=== PATIENT | male | born 1965 | race Caucasian/White ===

== ENCOUNTER → 2017-03-23 15:23 | Outpatient (CLI) | payer MEDICAID, SELFPAY ==
[2017-03-23 19:29] LABS: Amphetamine/Metha Screen,Urine Negative ng/mL (<1000); Barbiturates Screen,Urine Negative ng/mL (<200); Benzodiazepines Screen,Urine Positive ng/mL (200); Cannabinoid Screen,Urine Negative ng/mL (<50); Cocaine Screen,Urine Negative ng/g (<300); Methadone Screen,Urine Negative ng/mL (<300); Opiate Screen,Urine Positive ng/mL (<300); Phencyclidine Screen,Urine Negative ng/mL (<25)
== END ==
PROVIDERS: Visit Provider Emergency Medicine
DX: Z79.899 Other long term (current) drug therapy (principal)
CPT/HCPCS: 80305

== ENCOUNTER → 2017-04-23 14:45 | Outpatient (REF) | payer MEDICAID, SELFPAY ==
[2017-04-23 19:54] LABS: Amphetamine/Metha Screen,Urine Negative ng/mL (<1000); Barbiturates Screen,Urine Negative ng/mL (<200); Benzodiazepines Screen,Urine Positive ng/mL (200); Cannabinoid Screen,Urine Negative ng/mL (<50); Cocaine Screen,Urine Negative ng/g (<300); Methadone Screen,Urine Negative ng/mL (<300); Opiate Screen,Urine Positive ng/mL (<300); Phencyclidine Screen,Urine Negative ng/mL (<25)
== END ==
LOC: LAB 14:45
PROVIDERS: Visit Provider Emergency Medicine
DX: Z79.899 Other long term (current) drug therapy (principal)
CPT/HCPCS: 80305

== ENCOUNTER → 2017-10-02 09:33 | Outpatient (REF) | payer MEDICAID, SELFPAY ==
[2017-10-02 16:58] LABS: Amphetamine/Metha Screen,Urine Negative ng/mL (<1000); Barbiturates Screen,Urine Negative ng/mL (<200); Benzodiazepines Screen,Urine Positive ng/mL (<200); Cannabinoid Screen,Urine Negative ng/mL (<50); Cocaine Screen,Urine Negative ng/mL (<300); Methadone Screen,Urine Negative ng/mL (<300); Opiate Screen,Urine Negative ng/mL (<300); Phencyclidine Screen,Urine Negative ng/mL (<25)
== END ==
LOC: LAB 09:33
PROVIDERS: Visit Provider Nurse Practitioner Family
DX: Z79.899 Other long term (current) drug therapy (principal)
CPT/HCPCS: 80305

== ENCOUNTER → 2017-12-31 13:30 | Outpatient (CLI) | payer MEDICAID, SELFPAY ==
[2017-12-31 13:44] LABS: Basophils % 0.4 % (0.1-2.0); Eosinophils # 0.1 K/mm3 (0.0-0.4); Eosinophils % 2.1 % (0.1-12.0); Hematocrit 49.6 % (42.0-52.0); Hemoglobin 16.4 g/dL (14.1-18.0); Lymphocytes # 1.9 K/mm3 (0.7-4.5); Lymphocytes % 34.2 % (10-50); Mean Corpuscular Volume 100.1 fl (80-94); Mean Platelet Volume 8.3 fl (7.4-10.4); Monocytes # 0.6 K/mm3 (0.1-1.0); Neutrophils % 53.3 % (37.0-80.0); Platelet Count 168 K/mm3 (142-424); Red Blood Count 4.96 M/mm3 (4.60-6.20); Red Cell Distribution Width 13.1 % (11.5-17.5); White Blood Count 5.6 K/mm3 (4.8-10.8)
[2017-12-31 13:58] LABS: Hemoglobin A1C 5.5 % (0.0-7.0)
[2017-12-31 14:40] LABS: Alanine Aminotransferase 48 U/L (12-78); Albumin Level 3.7 gm/dL (3.4-5.0); Albumin/Globulin Ratio 0.8 (1.1-1.8); Alkaline Phosphatase 77 U/L (46-116); Anion Gap 15.3 mEq/L (5-15); Aspartate Amino Transferase 28 U/L (15-37); Bilirubin,Total 0.3 mg/dL (0.2-1.0); Blood Urea Nitrogen 10 mg/dL (7-18); Calcium 9.1 mg/dL (8.5-10.1); Carbon Dioxide 26 mmol/L (21.0-32.0); Chloride 104 mmol/L (98-107); Chol/HDL Ratio 3.8 (1-3.5); Cholesterol 195 mg/dL (140-200); Creatinine,Serum 0.77 mg/dL (0.70-1.30); Estimated Glomerular Filt Rate 106 ml/min (>60); Free T4 (Free Thyroxine) 0.96 ng/dl (0.76-1.46); GFR (African American) 128 ML/MIN (>60); Globulin 4.8 gm/dl (1.3-3.2); HDL Cholesterol 52 mg/dL (27-67); LDL Cholesterol 130 mg/dL (0-130); Potassium 4.3 mmoL/L (3.5-5.1); Sodium 141 mmol/L (136-145); Thyroid Stimulating Hormone 1.99 uIU/ml (0.358-3.740); Total Protein,Serum 8.5 gm/dL (6.4-8.2); Triglycerides 66 mg/dL (30-200); VLDL Cholesterol 13 mg/dL (0-40)
[2017-12-31 14:45] LABS: Glucose 93 mg/dL (74-106)
[2017-12-31 14:48] LABS: Amphetamine/Metha Screen,Urine Negative ng/mL (<1000); Barbiturates Screen,Urine Negative ng/mL (<200); Benzodiazepines Screen,Urine Negative ng/mL (<200); Cannabinoid Screen,Urine Negative ng/mL (<50); Cocaine Screen,Urine Negative ng/mL (<300); Methadone Screen,Urine Negative ng/mL (<300); Opiate Screen,Urine Negative ng/mL (<300); Phencyclidine Screen,Urine Negative ng/mL (<25)
[2018-01-02 16:00] LABS: Prostate Specific Ag 0.3 ng/mL (0.0-4.0)
[2018-01-02 16:01] LABS: PSA, Free 0.08 ng/mL
== END ==
PROVIDERS: Visit Provider Emergency Medicine
DX: I10 Essential (primary) hypertension (principal); Z79.899 Other long term (current) drug therapy
CPT/HCPCS: 80053; 80061; 80305; 83036; 84153; 84154; 84439; 84443; 85025

== ENCOUNTER → 2018-01-22 07:25 | Outpatient (CLI) | payer MEDICAID, SELFPAY ==
--- NOTE | 2018-01-22 07:28 | NM_ITS ---
CARDIOLITE SPECT MYOCARDIAL PERFUSION SCAN, REST AND STRESS: EXERCISE STRESS [facility] REVIEW QGS EF AND WALL MOTION EVALUATION: QPS - PERFUSION EVALUATION HISTORY: Chest pain, HTN, Tobacco use DOSE: 9.91 mCi technetium 99m mibi intravenously at rest followed by 30.4 mCi technetium 99m mibi following the intravenous ministration of 0.4 mg of Lexiscan. Resting blood pressure is 176/88. Stress blood pressure 157/81. FINDINGS: Ejection fraction is calculated to be 60%. Stress images reveal decreased activity in the inferior apical wall with mildly reduced activity in a portion of the lateral wall. 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 The inferior wall and apex are significantly hypokinetic. Ejection fraction normal. This is a high risk abnormal stress test
--- NOTE | 2018-01-22 08:18 | HMH.ITSHM ---
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 []LORAZOPAM BUPROPION LISINOPRIL HYDROCODONE NEURONTIN FLEXERIL ASA
== END ==
PROVIDERS: PCP Emergency Medicine; Visit Provider Internal Medicine Cardiovascular Disease
DX: R07.9 Chest pain, unspecified (principal); I10 Essential (primary) hypertension; E66.3 Overweight; F17.200 Nicotine dependence, unspecified, uncomplicated; F41.9 Anxiety disorder, unspecified; G47.9 Sleep disorder, unspecified; G89.29 Other chronic pain; R06.83 Snoring; R40.0 Somnolence
CPT/HCPCS: 78452; 93017; 93306; A9502; J2785

== ENCOUNTER → 2018-04-01 14:19 | Outpatient (CLI) | payer MEDICAID, SELFPAY ==
[2018-04-01 15:28] LABS: Amphetamine/Metha Screen,Urine Negative ng/mL (<1000); Barbiturates Screen,Urine Negative ng/mL (<200); Benzodiazepines Screen,Urine Negative ng/mL (<200); Cannabinoid Screen,Urine Negative ng/mL (<50); Cocaine Screen,Urine Negative ng/mL (<300); Methadone Screen,Urine Negative ng/mL (<300); Opiate Screen,Urine Negative ng/mL (<300); Phencyclidine Screen,Urine Negative ng/mL (<25)
== END ==
PROVIDERS: Visit Provider Emergency Medicine
DX: Z79.899 Other long term (current) drug therapy (principal)
CPT/HCPCS: 80305

== ENCOUNTER → 2018-09-04 17:03 | Outpatient (CLI) | payer MEDICAID, SELFPAY ==
[2018-09-04 17:56] LABS: Anion Gap 9.4 mEq/L (5-15); Blood Urea Nitrogen 9 mg/dL (7-18); Calcium 9.4 mg/dL (8.5-10.1); Carbon Dioxide 32 mmol/L (21.0-32.0); Chloride 107 mmol/L (98-107); Creatinine,Serum 0.87 mg/dL (0.70-1.30); Estimated Glomerular Filt Rate 91 ml/min (>60); GFR (African American) 111 ML/MIN (>60); Glucose 89 mg/dL (74-106); Potassium 5.4 mmoL/L (3.5-5.1); Sodium 143 mmol/L (136-145)
[2018-09-04 18:32] LABS: Amphetamine/Metha Screen,Urine Negative ng/mL (<1000); Barbiturates Screen,Urine Negative ng/mL (<200); Benzodiazepines Screen,Urine Positive ng/mL (<200); Cannabinoid Screen,Urine Negative ng/mL (<50); Cocaine Screen,Urine Negative ng/mL (<300); Methadone Screen,Urine Negative ng/mL (<300); Opiate Screen,Urine Negative ng/mL (<300); Phencyclidine Screen,Urine Negative ng/mL (<25)
== END ==
PROVIDERS: Visit Provider Emergency Medicine
DX: E87.5 Hyperkalemia (principal)
CPT/HCPCS: 80048; 80305

== ENCOUNTER → 2018-10-15 13:49 | Outpatient (CLI) | payer MEDICAID, SELFPAY ==
[2018-10-15 14:34] LABS: Basophils % 0.5 % (0.1-2.0); Eosinophils # 0.2 K/mm3 (0.0-0.4); Eosinophils % 2.7 % (0.1-12.0); Hematocrit 52.7 % (42.0-52.0); Hemoglobin 17.8 g/dL (14.1-18.0); Lymphocytes % 32.9 % (10-50); Mean Corpuscular HGB Conc 33.8 g/dL (31.8-35.4); Mean Corpuscular Hemoglobin 33.6 pg (27.0-31.2); Mean Corpuscular Volume 99.3 fl (80-94); Mean Platelet Volume 7.7 fl (7.4-10.4); Monocytes # 0.7 K/mm3 (0.1-1.0); Monocytes % 11.6 % (1.7-9.3); Neutrophils # 3.2 K/mm3 (1.8-7.8); Neutrophils % 52.3 % (37.0-80.0); Platelet Count 184 K/mm3 (142-424); Red Blood Count 5.31 M/mm3 (4.60-6.20); Red Cell Distribution Width 12.9 % (11.5-17.5)
[2018-10-15 14:43] LABS: Alanine Aminotransferase 43 U/L (12-78); Albumin Level 3.9 gm/dL (3.4-5.0); Albumin/Globulin Ratio 0.8 (1.1-1.8); Alkaline Phosphatase 75 U/L (46-116); Anion Gap 12.7 mEq/L (5-15); Aspartate Amino Transferase 29 U/L (15-37); Bilirubin,Total 0.7 mg/dL (0.2-1.0); Blood Urea Nitrogen 11 mg/dL (7-18); Calcium 9.3 mg/dL (8.5-10.1); Carbon Dioxide 28 mmol/L (21.0-32.0); Chloride 103 mmol/L (98-107); Chol/HDL Ratio 3.1 (1-3.5); Cholesterol 153 mg/dL (140-200); Estimated Glomerular Filt Rate 101 ml/min (>60); GFR (African American) 122 ML/MIN (>60); Globulin 4.6 gm/dl (1.3-3.2); Glucose 83 mg/dL (74-106); HDL Cholesterol 49 mg/dL (27-67); LDL Cholesterol 91 mg/dL (0-130); Potassium 4.7 mmoL/L (3.5-5.1); Sodium 139 mmol/L (136-145); Total Protein,Serum 8.5 gm/dL (6.4-8.2); Triglycerides 64 mg/dL (30-200); VLDL Cholesterol 13 mg/dL (0-40)
[2018-10-18 10:10] LABS: Vitamin B12 369 pg/mL (232-1245)
[2018-10-18 17:11] LABS: Folate 7.1 ng/mL (>3.0)
== END ==
PROVIDERS: Visit Provider Emergency Medicine
DX: R53.83 Other fatigue (principal); E66.9 Obesity, unspecified
CPT/HCPCS: 80053; 80061; 82607; 82746; 85025

== ENCOUNTER → 2018-11-01 15:52 | Outpatient (CLI) | payer MEDICAID, SELFPAY ==
[2018-11-01 17:27] LABS: Anion Gap 14.3 mEq/L (5-15); Blood Urea Nitrogen 10 mg/dL (7-18); Calcium 9.7 mg/dL (8.5-10.1); Carbon Dioxide 29 mmol/L (21.0-32.0); Chloride 103 mmol/L (98-107); Creatinine,Serum 0.86 mg/dL (0.70-1.30); Estimated Glomerular Filt Rate 93 ml/min (>60); GFR (African American) 112 ML/MIN (>60); Glucose 132 mg/dL (74-106); Potassium 4.3 mmoL/L (3.5-5.1); Sodium 142 mmol/L (136-145)
[2018-11-03 15:53] LABS: Peripheral Smear Review Scanned Result
== END ==
PROVIDERS: Visit Provider Physician Assistant
DX: E87.5 Hyperkalemia (principal); D53.9 Nutritional anemia, unspecified
CPT/HCPCS: 36415; 80048

== ENCOUNTER → 2018-12-24 16:55 | Outpatient (CLI) | payer MEDICAID, SELFPAY ==
[2018-12-24 18:01] LABS: Amphetamine/Metha Screen,Urine Negative ng/mL (<1000); Barbiturates Screen,Urine Negative ng/mL (<200); Benzodiazepines Screen,Urine Negative ng/mL (<200); Cannabinoid Screen,Urine Negative ng/mL (<50); Cocaine Screen,Urine Negative ng/mL (<300); Methadone Screen,Urine Negative ng/mL (<300); Opiate Screen,Urine Negative ng/mL (<300); Phencyclidine Screen,Urine Negative ng/mL (<25)
[2018-12-31 08:28] LABS: Alprazolam Negative (Cutoff=100); Benzodiazepines Negative ng/mL (Cutoff=100); Clonazepam Negative (Cutoff=100); Flurazepam Negative (Cutoff=100); Lorazepam Negative (Cutoff=100); Midazolam Negative (Cutoff=100); Temazepam Negative (Cutoff=100); Triazolam Negative (Cutoff=100)
== END ==
PROVIDERS: Visit Provider Emergency Medicine
DX: Z79.899 Other long term (current) drug therapy (principal)
CPT/HCPCS: 80305; 80346

== ENCOUNTER → 2019-01-13 11:23 | Outpatient (POV) | payer MEDICAID, SELFPAY | PROVIDERS: Visit Provider Specialist | DX: R20.0 Anesthesia of skin (principal) ==

== ENCOUNTER → 2019-02-17 08:33 | Outpatient (CLI) | payer MEDICAID, SELFPAY ==
--- NOTE | 2019-02-17 08:33 | MR_ITS ---
PROCEDURE: MR LUMBAR SPINE WO CON CLINICAL INDICATION: back pain Low back pain, left leg weakness and pain COMPARISON: STAFF RADIATION THERAPIST/O MRI-L-SPINE W/O from 10/27/2016 TECHNIQUE: Standard multiplanar multiecho sequences are performed without contrast. 3-D MIP and myelographic images are also rendered and reviewed FINDINGS: There is normal alignment. The spinal cord ends at the T12-L1 level. T11-T12: Mild degenerative disc disease. Mild chronic wedging of T11. T12-L1: Degenerate disc disease with bulging disc slightly eccentric toward the right not significantly changed. There is mild right lateral recess narrowing. Increased T2 signal involves the inferior aspect of the L1 vertebral body consistent with endplate type 1 changes. L1-L2: Mild degenerative disc disease with mild bulging disc mild facet ligamentum hypertrophy. L2-L3: Degenerative disc disease with bulging disc along with facet and ligamentum hypertrophy. There is moderate right and severe left foraminal narrowing with narrowing of the canal. This is not significantly changed. L3-L4: Degenerate disc disease with bulging disc with endplate hypertrophic change in type 1 endplate changes. There facet and ligamentum hypertrophy with moderate bilateral foraminal narrowing. Minimal central/right paracentral disc protrusion not significantly changed. There is canal stenosis. L4-5: Degenerative disc disease with bulging disc with facet and ligamentum hypertrophy with severe right and moderate left foraminal narrowing. Small central disc extrusion is present slightly eccentric toward the right. This is slightly larger when compared to the previous exam with severe right lateral recess narrowing. There are postsurgical changes at the lamina on the right at L4-5. There narrowing of the canal at this level. L5-S1: Facet and ligamentum hypertrophy with mild bilateral foraminal narrowing. IMPRESSION: Abnormal MRI of the lumbar spine with multilevel degenerative disc disease with bulging disc along with facet ligamentum hypertrophy with varying areas of lateral recess and foraminal narrowing as well as canal stenosis. Please see above for detailed description at each level. There is bulging disc at L4-5 with central disc and right paracentral disc protrusion/extrusion which may be very slightly larger with severe right lateral recess narrowing and canal stenosis and moderate left lateral recess narrowing. Cannot exclude epidural fibrosis at this area. Post enhanced exam may provide further evaluation Dictated by: Randy Orlando MD 02/18/2019 11:02 Electronically signed by Randy Orlando MD in [place] 02/18/2019 11:02
== END ==
PROVIDERS: PCP Emergency Medicine; Visit Provider Emergency Medicine
DX: G89.29 Other chronic pain (principal); M54.5 Low back pain
CPT/HCPCS: 72148; 76376

== ENCOUNTER → 2019-02-18 15:58 | Outpatient (CLI) | payer MEDICAID, SELFPAY ==
[2019-02-19 22:49] LABS: Amphetamine/Metha Screen,Urine Negative ng/mL (<1000); Barbiturates Screen,Urine Negative ng/mL (<200); Benzodiazepines Screen,Urine Positive ng/mL (<200); Cannabinoid Screen,Urine Negative ng/mL (<50); Cocaine Screen,Urine Negative ng/mL (<300); Methadone Screen,Urine Negative ng/mL (<300); Opiate Screen,Urine Negative ng/mL (<300); Phencyclidine Screen,Urine Negative ng/mL (<25)
== END ==
PROVIDERS: Visit Provider Emergency Medicine
DX: Z79.899 Other long term (current) drug therapy (principal)
CPT/HCPCS: 80305

== ENCOUNTER → 2019-06-23 13:25 | Outpatient (CLI) | payer MEDICAID, SELFPAY ==
[2019-06-23 14:51] LABS: Basophils # 0.1 K/mm3 (0-0.2); Basophils % 1.1 % (0.1-2.0); Eosinophils # 0.2 K/mm3 (0.0-0.4); Eosinophils % 2.1 % (0.1-12.0); Hematocrit 49.7 % (42.0-52.0); Hemoglobin 16.3 g/dL (14.1-18.0); Lymphocytes # 1.9 K/mm3 (0.7-4.5); Lymphocytes % 26.9 % (10-50); Mean Corpuscular HGB Conc 32.9 g/dL (31.8-35.4); Mean Corpuscular Hemoglobin 31.7 pg (27.0-31.2); Mean Corpuscular Volume 96.4 fl (80-94); Mean Platelet Volume 9.2 fl (7.4-10.4); Monocytes % 13.7 % (1.7-9.3); Neutrophils # 3.9 K/mm3 (1.8-7.8); Neutrophils % 56.2 % (37.0-80.0); Platelet Count 209 K/mm3 (142-424); Red Blood Count 5.15 M/mm3 (4.60-6.20); Red Cell Distribution Width 13.3 % (11.5-17.5)
[2019-06-23 16:00] LABS: Hemoglobin A1C 5.2 % (4.0-6.0)
[2019-06-23 16:16] LABS: Chloride 107 mmol/L (98-107); Potassium 4.6 mmoL/L (3.5-5.1); Sodium 139 mmol/L (136-145)
[2019-06-23 16:19] LABS: Alanine Aminotransferase 37 U/L (12-78); Albumin Level 4.3 g/dl (3.5-5.0); Albumin/Globulin Ratio 1.1 (1.1-1.8); Alkaline Phosphatase 114 U/L (38-126); Anion Gap 10.6 mEq/L (5-15); Aspartate Amino Transferase 43 U/L (17-59); Bilirubin,Total 0.2 mg/dl (0.2-1.3); Blood Urea Nitrogen 16 mg/dl (9-20); Carbon Dioxide 26 mmol/L (22.0-30.0); Cholesterol 138 mg/dl (140-200); Estimated Glomerular Filt Rate 100 ml/min (>60); GFR (African American) 121 ML/MIN (>60); Total Protein,Serum 8.3 g/dl (6.3-8.2); Triglycerides 93 mg/dl (30-150); VLDL Cholesterol 19 mg/dL (0-40)
[2019-06-23 16:20] LABS: Calcium 9.4 mg/dl (8.4-10.2); Glucose 98 mg/dl (74-100); HDL Cholesterol 70 mg/dl (40-60)
[2019-06-23 16:31] LABS: Direct LDL Cholesterol 71.32 mg/dL (100-129)
[2019-06-23 16:38] LABS: Free T4 (Free Thyroxine) 1.26 ng/dl (0.78-2.19)
[2019-06-23 16:54] LABS: Thyroid Stimulating Hormone 1.84 uIU/mL (0.465-4.68)
[2019-06-25 11:27] LABS: PSA, Free 0.11 ng/mL; Prostate Specific Ag 0.5 ng/mL (0.0-4.0)
[2019-06-26 11:36] LABS: Folate 5.9 ng/mL (>3.0); Vitamin B12 381 pg/mL (232-1245)
== END ==
PROVIDERS: Visit Provider Emergency Medicine
DX: R53.83 Other fatigue (principal); Z29.9 Encounter for prophylactic measures, unspecified; F41.9 Anxiety disorder, unspecified; R73.9 Hyperglycemia, unspecified; E66.9 Obesity, unspecified
CPT/HCPCS: 80053; 80061; 82607; 82746; 83036; 84153; 84154; 84439; 84443; 85025

== ENCOUNTER 2024-10-13 16:30 | Emergency (ER) | payer OTHER, SELFPAY ==
--- OUTSIDE RECORDS SUMMARY | 2024-09-02 11:14 | XMS_ITS | Encounter Summary ---
Author Organization Healthcare Address [address] [place] [address] Care Team Providers Care Central Station Operator Name Role Phone Alem Garber MD Primary Care Provider [phone] Encounter Details Date Type Department Care Team (Latest Contact Info) Description 09/02/2024 11:14 AM EDT - 09/02/2024 11:59 PM EDT Hospital Encounter Medical Office Building Radiology [address] [place] [address] Hip pain, right Discharge Disposition: Home or Self Care Social History Tobacco Use Types Packs/Day Years Used Date Smoking Tobacco: Every Day Cigarettes 1.9 48.7 Started: 1976 Passive Smoke Exposure: Current Smokeless Tobacco: Never Comments:6/7 Cigarettes a da y Alcohol Use Standard Drinks/Week Comments Yes 2 (1 standard drink = 0.6 oz pur e alcohol) Humiliation, Afraid, Rape, and Kick questionnair e Answer Date Recorded Within the last year, have y ou been afraid of your partner or ex-partner? No 09/19/2023 Within the last year, have y ou been humiliated or emotionally abused in other ways by your partner or ex-partner? No Within the last year, have y ou been kicked, hit, slapped, or otherwise physically hurt by your partner or ex-partner? No 09/19/2023 Within the last year, have y ou been raped or forced to have any kind of sexual activity by your partner or ex-partner? No 09/19/2023 AUDIT-C Answer Date Recorded Q1: How often do you have a drink containing alcohol? 4 or more times a week 06/27/2021 Q2: How many drinks containi ng alcohol do you have on a typical day when you are drinking? 5 or 6 Q3: How often do you have si x or more drinks on one occasion? Daily or almost daily 06/27/2021 PHQ-2 Answer Date Recorded Patient Health Questionnaire-2 Score 0 04/08/2024 Hunger Vital Sign Answer Date Recorded Within the past 12 months, y ou worried that your food would run out before you got the money to buy more. Never true 09/19/19 24 Within the past 12 months, t he food you bought just didn't last and you didn't have money to get more. Never true 09/19/2023 PRAPARE - Transportation Answer Date Re corded In the past 12 months, has l ack of transportation kept you from medical appointments or from getting medications? No 09/05 In the past 12 months, has l ack of transportation kept you from meetings, work, or from getting things needed for daily living? No 09/19/2023 Housing Stability Vital Sign Answer Booker e Recorded In the last 12 months, was t here a time when you were not able to pay the mortgage or rent on time? No 09/19/2023 In the last 12 months, how many places have you lived? 1 09/19/2023 In the last 12 months, was t here a time when you did not have a steady place to sleep or slept in a [place] [facility] [place] (including now)? No 09/19/2023 PHQ-9 Answer Date Recorded Patient Health Questionnaire-9 Score 3 04/08/2024 CAGE ASSESSMENT Answer Date Recorded Cage unable to access Not on file 03/19/2023 Maximum number of drinks you had on a given occasion in the last month? 0 drinks 03/19/2023 How many alcoholic Beverages do you typically drink in a week? 0 - 7 per week 03/19/2023 Have you ever felt you should CUT down on your d rinking? 0 03/19/2023 Have you been ANNOYED by peo ple criticizing your drinking? 0 03/19/2023 Have you felt GUILTY about your drinking? 0 03/19/2023 Have you had a drink first t santosh in the morning (EYE-STUDIO CONTROL OPERATOR) to steady your nerves or to get rid of a hangover? 0 03/19/2023 CAGE Questionnaire Score 0 024 Utilities Answer Date Recorded In the past 12 months has th e electric, gas, oil, or water company threatened to shut off services in your home? No 09/19/2023 PHQ-2A Answer Date Recorded Depression Risk 0 02/16/2022 Sex and Gender Information Value Date Recorded Sex Assigned at Male 06/25/2021 6:41 AM EDT Legal Sex Male 8:11 PM EDT Gender Identity Male 06/25/2021 6:41 AM EDT Sexual Orientation Not on file documented as of this encounter Medications at Time of Discharge gabapentin (Neurontin) 300 MG capsule Take 1 capsule (300 mg) by mouth 3 (three) times a day. 10/25/2023 naloxone (Narcan) 4 mg/0.1 mL nasal spray 08/17/2024 oxyCODONE (Roxicodone) 10 MG immediate release tablet Take 1 tablet (10 mg) by mouth 3 (three) times a day. 30 tablet 03/08/2023 albuterol 108 (90 Base) MCG/ACT inhaler Inhale 2 puffs every 6 (six) hours if needed for wheezing. 18 g 3 12/27/2023 10/07/2024 atorvastatin (Lipitor) 40 MG tablet Take 1 tablet by mouth daily. 90 tablet 05/28/2024 10/07/2024 cyclobenzaprine (Flexeril) 10 MG tabletIndications :Chronic low back pain, unspecified back pain laterality, unspecified whether sciatica present Take 1 tablet (10 mg) by mouth 2 (two) times a day. 180 tablet 3 12/26/2023 10/07/2024 lisinopril-hydroC HLOROthiazide 10-12.5 MG tablet Take 1 tablet by mouth daily. 90 tablet 05/28/2024 10/07/2024 methylPREDNISolon e (Medrol Dospak) 4 MG tablets Take as directed. 1 each 04/14/2024 10/07/2024 documented as of this encounter Plan of Treatment Upcoming Encounters Date Type Department Care Team (Late st Contact Info) Description 02/06/2025 1:00 PM EST Office Visit [facility] [address] [place] [id number] Alem Garber MD [address] [place] [address] 04/08/2025 3:10 PM EST Office Visit [facility] [address] [place] [address] Gina aDiley, HEALTH INSURANCE ASSESSOR [address] [place] [address] documented as of this encounter Procedures Procedure Name Priority Date/Time Associated Diagnosis Comments XR HIP RIGHT 2 OR 3 VIEWS Routine 09/02/2024 11:28 AM EDT Hip pain, right documented in this encounter Results * 1- Year Post-Op: XR Hip (AP Pelvis Standing / Cross - Table Lateral) (09/02/2024 11:28 AM EDT) Anatomical Region Laterality Modality Lower Extremities, Hip Right Digital R adiography Impressions 09/02/2024 1:38 PM EDT Similar appearance of bilateral hip arthroplasty without evidence of hardware loosening or failure. No acute osseous finding. CRITICAL RESULT: No. COMMUNICATION: Per this written report. By electronically signing this report, I, the attending physician, attest that I have personally reviewed the images/data for the above examination(s) and agree with the final edited report. Drafted by Bart Hinson III, MD on 09/02/2024 11:30 AM Final report signed by Xochitl Whitman MD on 09/02/2024 1:38 PM Narrative 09/02/2024 1:38 PM EDT CLINICAL INDICATION: Post-Op TECHNIQUE: XR HIP RIGHT 2 OR 3 VIEWS COMPARISON: Bilateral hips radiograph dated 08/21/2023 Pelvic radiograph dated 05/22/2023 FINDINGS: Similar appearance of bilateral hip arthroplasty without evidence of hardware loosening or failure. No acute fracture or malalignment. Pubic symphysis is intact. No acute findings of the visualized portions of the SI joints. Procedure Note Xochitl Whitman MD - 09/02/2024 CLINICAL INDICATION: Post-Op TECHNIQUE: XR HIP RIGHT 2 OR 3 VIEWS COMPARISON: Bilateral hips radiograph dated 08/21/2023 Pelvic radiograph dated 05/22/2023 FINDINGS: Similar appearance of bilateral hip arthroplasty without evidence ofhardware loosening or failure. No acute fracture or malalignment. Pubicsymphysis is intact. No acute findings of the visualized portions of theSI joints. IMPRESSION: Similar appearance of bilateral hip arthroplasty without evidence ofhardware loosening or failure. No acute osseous finding. CRITICAL RESULT: No. COMMUNICATION: Per this written report. By electronically signing this report, I, the attending physician, angelo I have personally reviewed the images/data for the aboveexamination(s) and agree with the final edited report. Drafted by Bart Hinson III, MD on 09/02/2024 11:30 AM Final report signed by Xochitl Whitman MD on 09/02/2024 1:38 PM us Yandel Lewis MD IMG XR PROCEDURES Final R esult documented in this encounter Visit Diagnoses Diagnosis Hip pain, right Pain in joint, pelvic region and thigh documented in this encounter Additional Health Concerns Assessment Noted Time PHQ-9 Depression Total Score: 3 04/09/19 25 8:25 AM EST A fall risk assessment has been complete d for the patient 09/02/2024 11:32 AM EDT A Body Mass Index follow-up plan has been documented for the patient 09/02/2024 12:14 PM EDT documented as of this encounter Care Teams Central Station Operator Relationship Specialty Start Date End Date Alem Garber MD [address] [place] [phone] PCP - General Family Medicine 01/20/22 documented as of this encounter
--- OUTSIDE RECORDS SUMMARY | 2024-09-02 11:40 | XMS_ITS | Encounter Summary ---
Author Organization Healthcare Address [address] [place] [address] Care Team Providers Care Wool Buyer Name Role Phone Alem Garber MD Primary Care Provider [phone] Reason for Visit * Reason Comments Follow-up Follow-up Encounter Details Date Type Department Care Team ([facility] Contact Info) Description 09/02/2024 11:40 AM EDT Office Visit Medical Office Building [facility] [address], [address] [place] [address] Yandel Lewis MD [address] [place] [address] History of bilateral hip replacements (Primary Dx) Social History Tobacco Use Types Packs/Day Years Used Date Smoking Tobacco: Every Day Cigarettes 1.9 48.7 Started: 1976 Passive Smoke Exposure: Current Smokeless Tobacco: Never Tobacco Cessation:Ready to Q uit: Not Asked; Counseling Given: Not Answered Comments:6/7 Cigarettes a day Alcohol Use Standard Drinks/Week Comments Yes 2 [...] place to sleep or slept in a long-term (including now)? No 09/19/2023 PHQ-9 Answer Date [...] drink first t santosh in the morning (EYE-HOME DEMONSTRATOR) to steady your nerves or to get rid of a hangover? 0 03/19/2023 CAGE Questionnaire Score 0 024 Utilities Answer Date Recorded In the past 12 months has [employer], gas, oil, or water [employer] threatened to shut off services in your home? No 09/19/2023 PHQ-2A Answer Date Recorded Depression Risk 0 02/16/2022 Sex and Gender Information Value Date Recorded Sex Assigned at Male 06/25/2021 6:41 AM EDT Legal Sex Male 8:11 PM EDT Gender Identity Male 06/25/2021 6:41 AM EDT Sexual Orientation Not on file documented as of this encounter Last Filed Vital Signs Vital Sign Reading Time Taken Comments Blood Pressure 111/72 09/02/2024 11:32 AM EDT Pulse 97 09/02/2024 11:32 AM EDT Temperature - - Respiratory Rate 18 09/02/2024 11:32 AM EDT Oxygen Saturation 95% 09/02/2024 11:32 AM EDT Inhaled Oxygen Concentration - - Weight 109 kg (241 lb 2.9 oz) 09/02/2024 11:32 A M EDT Height 175.3 cm (5' 9 ) 09/02/2024 11:32 AM EDT Body Mass Index 35.62 09/02/2024 11:32 AM EDT documented in this encounter Miscellaneous Notes * Progress Notes - Aravind Kelley MD - 09/02/2024 11:40 AM EDT ORTHOPAEDIC Surgery Clinic Note NAME: Nigel Li : 1965 DATE: 09/02/2024 CHIEF COMPLAINT: Chief Complaint Patient presents with Left Hip - Follow-up Right Hip - Follow-up HPI: Nigel Li is a 59 y.o. male who presents for routine follow up and x- ray status post right total hip arthroplasty performed on 03/07/2023. He has overall been doing very well since we last saw him. He is ambulating without issue and is able to all activities of daily living without concern. He is very happy with his result. I have reviewed the patient's past medical history, surgical history, social history, and family history. This is located in the patient's note and/or in their intake form that has been scanned into their medical record at today's visit. REVIEW OF SYSTEMS: The 14 point review of systems was obtained and included: Eyes, ENT, cardiovascular, respiratory, gastrointestinal, bladder/kidneys, musculoskeletal system, neurological system, allergies and immune system, hormone/endocrine system, skin, and psychiatric and is negative with the exception of those m entioned in the history of present illness. PHYSICAL EXAM: Vital signs: Visit Vitals BP 111/72 Pulse 97 Resp 18 Ht 1.753 m (5' 9 ) Wt 109 kg (241 lb 2.9 oz) SpO2 95% BMI 35.62 kg/m?? Smoking Status Every Day BSA 2.3 m?? Constitutional: Well developed. Well nourished. Psychologic: Mood is appropriate. Appropriate affect. Head and Face: Normocephalic. No obvious deformities. Eyes: Extraocular movements intact Pulmonary: Unlabored, normal effort. Cardiac: well perfused, extremities pink. Skin: No rashes on exposed skin surface. Neuro: No focal neuro deficit, normal coordination, normal muscle tone Musculoskeletal: Right lower extremity Incision well healed Flexion 110, IR 30, ER 50 5/5 tib ant, gastrocs, EHL, FHL Sensation intact to light touch DP, SP, sural, saphenous, tibial distributions' Foot well-perfused IMAGING: I personally reviewed radiographs of the pelvis and right hip which show intact and stable hardwarewithout signs of complication ASSESSMENT/ PLAN:59 y.o. male who is status post right ESTEVAN (03/07/23) and status post left ESTEVAN (10/19/23) -Patient doing well today. -Will plan to see him again in 5 years with repeat XR -All questions answered Aravind Kelley PGY-4 Orthopaedic Surgery [facility] Orthopaedic Trauma Service Pager: [phone] Orthopaedic Recon/Spine/Foot and Ankle Service Pager: [phone] Cosigned by Yandel Lewis MD at 09/02/2024 12:14 PM EDT Associated attestation - Yandel Lewis MD - 09/02/2024 12:14 PM EDT I saw and evaluated the patient with the resident/fellow. I discussed the case with the resident/fellow and agree with the findings and plan as documented. documented in this encounter Plan of Treatment Upcoming Encounters Date Type Department Care Team (Late st Contact Info) Description 02/06/2025 1:00 PM EST Office Visit [facility] [address] [place] [phone] Alem Garber MD [address] [place] [phone] 04/08/2025 3:10 PM EST Office Visit [facility] [address] [place] [address] Gina Dailey, PHARMACOVIGILANCE SPECIALIST [address] [place] [address] documented as of this encounter Visit Diagnoses Diagnosis History of bilateral hip replacements- Primary Hip joint replacement by other means documented in this encounter Additional Health Concerns Assessment Noted Time PHQ-9 Depression Total Score: 3 04/09/19 25 8:25 AM EST A fall risk assessment has been complete d for the patient 09/02/2024 11:32 AM EDT A Body Mass Index follow-up plan has been documented for the patient 09/02/2024 12:14 PM EDT documented as of this encounter Care Teams Wool Buyer Relationship Specialty Start Date End Date Alem Garber MD [address] [place] [phone] PCP - General Family Medicine 01/20/22 documented as of this encounter
--- OUTSIDE RECORDS SUMMARY | 2024-10-07 10:00 | XMS_ITS | Encounter Summary ---
Author Organization Healthcare Address [address] [place] [address] Care Team Providers Care Computer Network Specialist Name Role Phone Alem Garber MD Primary Care Provider [phone] Reason for Visit * Reason Comments Follow-up Encounter Details Date Type Department Care Team (Late st Contact Info) Description 10/07/2024 10:00 AM EDT Office Visit [facility] [address] [place] [address] Alem Garber MD [address] [facility] [address] [place] [address] Healthcare maintenance (Primary Dx); Chronic low back pain, unspecified back pain laterality, unspecified whether sciatica present; Encounter for immunization Social History Tobacco Use Types Packs/Day Years Used Date Smoking Tobacco: Every Day Cigarettes 1.9 48.7 Started: 1977 Passive Smoke Exposure: Current Smokeless Tobacco: Never Comments:6/7 Cigarettes a da y Alcohol Use Standard Drinks/Week Comments Not Currently 2 (1 standard drink = 0.6 oz pur e alcohol) AUDIT-C Answer Date Recorded Q1: How often [...] Date Recorded Patient Health Questionnaire-2 Score 0 10/07/2024 PHQ-9 Answer Date Recorded Patient Health Questionnaire-9 Score 0 10/07/2024 Humiliation, Afraid, Rape, and Kick questionnair e Answer Date Recorded Within the last year, have y ou been afraid of your partner or ex-partner? No 10/07/2024 Within the last year, have y ou been humiliated or emotionally abused in other ways by your partner or ex-partner? No Within the last year, have y ou been kicked, hit, slapped, or otherwise physically hurt by your partner or ex-partner? No 10/07/2024 Within the last year, have y ou been raped or forced to have any kind of sexual activity by your partner or ex-partner? No 10/07/2024 Hunger Vital Sign Answer Date Recorded Within the past 12 months, y ou worried that your food would run out before you got the money to buy more. Never true 10/08/19 25 Within the past 12 months, t he food you bought just didn't last and you didn't have money to get more. Never true 10/07/2024 PRAPARE - Transportation Answer Date Re corded In the past 12 months, has l ack of transportation kept you from medical appointments or from getting medications? No 03/2024 In the past 12 months, has l ack of transportation kept you from meetings, work, or from getting things needed for daily living? No 10/07/2024 Housing Stability Vital Sign Answer Booker e Recorded In the last 12 months, was t here a time when you were not able to pay the mortgage or rent on time? No 10/07/2024 Number of Times Moved in the Last Year Not on fi le 10/07/2024 At any time in the past 12 m [facility], were you homeless or living in a long term (including now)? No 10/07/2024 [facility] Utilities Answer Date Recorded In the past 12 months has th e electric, gas, oil, or water company threatened to shut off services in your home? No 10/07/2024 CAGE ASSESSMENT Answer Date Recorded Cage unable [...] drink first t santosh in the morning ([employer]) to steady your nerves or to get rid of a hangover? 0 03/19/2023 CAGE Questionnaire Score 0 024 PHQ-2A Answer Date Recorded Depression Risk 0 02/16/2022 Sex and Gender Information Value Date Recorded Sex Assigned at Male 06/25/2021 6:41 AM EDT Legal Sex Male 8:11 PM EDT Gender Identity Male 06/25/2021 6:41 AM EDT Sexual Orientation Not on file documented as of this encounter Last Filed Vital Signs Vital Sign Reading Time Taken Comments Blood Pressure 119/65 10/07/2024 10:25 AM EDT Pulse 53 10/07/2024 10:25 AM EDT Temperature 37 C (98.6 F) 10/07/2024 10:25 AM EDT Respiratory Rate 16 10/07/2024 10:25 AM EDT Oxygen Saturation 98% 10/07/2024 10:25 AM EDT Inhaled Oxygen Concentration - - Weight 113 kg (249 lb 1.9 oz) 10/07/2024 10:25 A M EDT Height 175.3 cm (5' 9 ) 10/07/2024 10:25 AM EDT Body Mass Index 36.79 10/07/2024 10:25 AM EDT documented in this encounter Functional Status * Over the past 2 weeks, how often have you been bothered by any of the following problems? Question Answer Date of Assessment Author Little interest or pleasure in doing things Not at all 10/07/2024 10:29 AM EDT Milly Aguilar I Feeling down, depressed, or hopeless Not at all 10/07/2024 10:29 AM EDT Milly Aguilar I Patient Health Questionnaire -2 Score 0 10/07/2024 10:29 AM EDT Milly Aguilar I * Question Answer Date of Assessment Author Trouble falling or staying asleep, or sleeping too much Not at all 10/07/2024 10:29 AM EDT Arden Chapmanon I Feeling tired or having lev le energy Not at all 10/07/2024 10:29 AM EDT Robbi Aguilaryton I Poor appetite or overeating Not at all 10/07/2024 10 :29 AM EDT Robbi Aguilaryton I Feeling bad about yourself - or that you are a failure or have let yourself or your family down Not at all 10/07/2024 10:29 AM EDT Arden Aguilaron I Trouble concentrating on things, such as reading the newspaper or watching television Not at all 10/07/2024 10:29 AM EDT Arden Aguilaron I Moving or speaking so slowly that other people could have noticed? Or the opposite - being so fidgety or restless that you have been moving around a lot more than usual. Not at all 10/07/2024 10:29 AM EDT Milly Interiano I Thoughts that you would be better off or hurting yourself in some way Not at all 10/07/2024 10:29 AM EDT Rito Aguilar I Patient Health Questionnaire -9 Score 0 10/07/2024 10:29 AM EDT Arden Aguilaron I * Calculated C-SSRS Risk Score (Lifetime/Recent) Answer Date of Assessment Author No Risk Indicated 10/07/2024 10:28 AM EDT Milly Interiano I * If you checked off any problems on this questionnaire so far, Question Answer Date of Assessment Author How difficult have these problems made it for you to do your work, take care of things at home, or get along with other people? Not difficult at all 10/07/2024 10:29 AM EDT Rito Aguilar I * Question Answer Date of Assessment Author 1. Wish to be (Past 1 Month) No 025 10:28 AM EDT Arden Aguilaron I 2. Non-Specific Active Suici livan Thoughts (Past 1 Month) No 10/07/2024 10:28 AM EDT Robbi Aguilar yton I 6. Suicidal Behavior (Lifetime) No 10:28 AM EDT Milly Aguilar I documented as of this encounter Miscellaneous Notes * Progress Notes - Alem Garber MD - 10/07/2024 10:00 AM EDT Subjective Nigel Li is a 59 y.o. male who presents for Follow-up History of Present Illness The patient presents for a routine checkup. He reports that his blood pressure is well-managed with his current medication regimen. He has beenadhering to his prescribed medications and requires refills for lisinopril, Flexeril, and pravastatin. His inhaler was recently refilled. He takes Flexeril in the morning and at night. He uses an inhaler for what he believes to be copd, as it provides relief throughout the day after 2 puffs in the morning. However, he now believes he may have COPD due to his smoking history of 40 years. He has experienced significant weight gain and persistent dry mouth. He occasionally feels that hisbladder does not fully empty, but this is not a consistent issue. He has reduced his smoking to about half a pack per day, aiming to limit himself to one cigarette per hour. He finds it particularly challenging to resist smoking in the mornings when he wakes up andhas coffee. He is interested in receiving the shingles vaccine, as he has not yet received it. He has also not received the COVID-19 vaccine. He is due for RSV, influenza, and tetanus vaccines. Social History: Tobacco: The patient smokes cigarettes, approximately half a pack per day. Coffee/Tea/Caffeine-containing Drinks: The patient drinks coffee in the morning. FAMILY HISTORY The patient reports that diabetes runs in the family. Objective Blood pressure 119/65, pulse 53, temperature 37 ??C (98.6 ??F), temperature source Oral, resp. rate16, height 1.753 m (5' 9 ), weight 113 kg (249 lb 1.9 oz), SpO2 98%. Physical Exam Physical Exam Vitals and nursing note reviewed. Constitutional: Appearance: Normal appearance. HENT: Head: Normocephalic and atraumatic. Nose: Nose normal. Mouth/Throat: Mouth: Mucous membranes are moist. Eyes: Extraocular Movements: Extraocular movements intact. Pupils: Pupils are equal, round, and reactive to light. Cardiovascular: Rate and Rhythm: Normal rate and regular rhythm. Pulmonary: Effort: Pulmonary effort is normal. Breath sounds: Normal breath sounds. Abdominal: Palpations: Abdomen is soft. Musculoskeletal: Cervical back: Normal range of motion and neck supple. Skin: General: Skin is warm. Neurological: General: No focal deficit present. Mental Status: She is alert and oriented to person, place, and time. Psychiatric: Mood and Affect: Mood normal. Results Assessment & Plan 1. Hypertension: - Blood pressure is well-controlled with the current medication regimen. - A prescription for lisinopril will be sent to the pharmacy. 2. Muscle spasms: - Currently taking Flexeril in the morning and at night. - A prescription for Flexeril will be sent to the pharmacy. 3. Hyperlipidemia: - Currently taking pravastatin. - A prescription for pravastatin will be sent to the pharmacy. 4. Smoking cessation: - Currently smoking about half a pack a day and trying to reduce further. - The potential use of nicotine patches was discussed as a possible aid in smoking cessation. 5. Health maintenance: - Blood work will be conducted today. - The first dose of the Shingrix vaccine will be administered today. Follow-up: The patient will follow up in 4 months. Verbal consent was obtained to use ambient listening technology to assist in the documentation of the encounter: yes documented in this encounter Plan of Treatment Upcoming Encounters Date Type Department Care Team (Late st Contact Info) Description 02/06/2025 1:00 PM EST Office Visit [facility] [address] [place] [phone] Alem Garber MD [address] [facility] [address] [place] [phone] 04/08/2025 3:10 PM EST Office Visit [facility] [address] [place] [address] Gina Dailey, MIRACLE [address] [place] [address] documented as of this encounter Procedures Procedure Name Priority Date/Time Associated Diagnosis Comments TSH REFLEX FT4 Routine 10/07/2024 11:18 AM EDT Healthcare maintenance VITAMIN D 25 HYDROXY Routine 10/07/2024 11:18 AM EDT Healthcare maintenance FREE T4, PLASMA Routine 10/07/2024 11:18 AM EDT Healthcare maintenance HEMOGLOBIN A1C Routine 10/07/2024 11:18 AM EDT Healthcare maintenance VITAMIN B12, SERUM Routine 10/07/2024 11 :18 AM EDT Healthcare maintenance LIPID PROFILE, PLASMA Routine 10/07/2024 11:18 AM EDT Healthcare maintenance COMPREHENSIVE METABOLIC PANEL, PLASMA Routine 10/07/2024 11:18 AM EDT Healthcare maintenance documented in this encounter Results * Free T4, Plasma (10/07/2024 11:18 AM EDT) Free T4, Plasma 1.0 0.8 - 1.7 ng/dL 10/07/2024 2:[address] [facility] Blood Venous blood specimen / Unknown Venipuncture / Unknown 10/07/2024 11:18 AM EDT 10/07/2024 1:34 PM EDT us Alem Garber MD LAB BLOOD ORDERABLES Leana l Result [facility] [address] [place] [address] * (ABNORMAL) Vitamin D 25 Hydroxy (10/07/2024 11:18 AM EDT) Vitamin D 25 Hydroxy 11.7(L) 20.0 - 80.0 ng/mL 10/07/2024 2:[address] [facility] Blood Venous blood specimen / Unknown Venipuncture / Unknown 10/07/2024 11:18 AM EDT 10/07/2024 1:[address] [facility] - 10/07/2024 2:24 PM EDT Testing performed on [address] [employer], standardized against NIST SRM 2972. When testing samples from patients whose predominant form of vitamin D is vitamin D2, such as patients receiving vitamin D2 supplementation, results that are subtherapeutic should be confirmed with another method, such as LC-MS/MS, before being used for patient management. Vitamin D, 25-Hydroxy reference range, age 18 years and up: Deficiency: <12 ng/mL Insufficiency: 12 to 19 ng/mL Sufficiency: 20 to 80 ng/mL Possible toxicity: >100 ng/mL us Alem Garber MD LAB BLOOD ORDERABLES Leana l Result Performing Organization Address [facility]/ZIP Co de Phone Number [facility] [address] [place] [address] * Vitamin B12, Serum (10/07/2024 11:18 AM EDT) Vitamin B12, Serum 559 210 - 1,033 pg/mL 10/07/2024 2:[address] [facility] Blood Venous blood specimen / Unknown Venipuncture / Unknown 10/07/2024 11:18 AM EDT 10/07/2024 1:34 PM EDT Alem Garber MD LAB BLOOD ORDERABLES Leana l Result [facility] [address] [place] [address] * Lipid Profile, Plasma (10/07/2024 11:18 AM EDT) Cholesterol, Plasma 120 <200 mg/dL 10/07/2024 2:[address] [facility] Comment: Cholesterol Reference Range (age >17 years): Desirable <200 mg/dL Borderline 200 to 239 mg/dL Undesirable >239 mg/dL HDL 59 >=40 mg/dL 10/07/2024 2:[address] [facility] Comment: HDL Cholesterol Reference Ranges (age >17 years): Female, acceptable > or = 50 mg/dL Male, acceptable > or = 40 mg/dL Triglycerides, Plasma 53 <150 mg/dL 10/07/2024 2:[address] [facility] Comment: Triglyceride Reference Range (age >17 years): Desirable: <150 mg/dL Borderline high: 150 to 199 mg/dL High: 200 to 499 mg/dL Very high: >499 mg/dL Increased risk of pancreatitis: >1000 mg/dL Cholesterol/HDL Ratio 2 10/07/2024 2:[address] [facility] LDL, Calculated 49 <100 mg/dL 2:[address] [facility] Comment: LDL Cholesterol Reference Range (age >17 years): Optimal: <100 mg/dL Near or above optimal: 100 - 129 mg/dL Borderline high: 130 - 159 mg/dL High: 160 - 189 mg/dL Very high: >189 mg/dL LDL Cholesterol Reference Range (age <18 years): Desirable: <110 mg/dL Borderline: 110 - 129 mg/dL Undesirable: >130 mg/dL LDL Cholesterol is calculated using the Rodriguez/NIH equation. Fasting greater than or equal to 12 hours? Yes 10/07/2024 2:[address] [facility] Blood Venous blood specimen / Unknown Venipuncture / Unknown 10/07/2024 11:18 AM EDT 10/07/2024 1:34 PM EDT us Alem Garber MD LAB BLOOD ORDERABLES Leana dooley Result [facility] [address] [place] [address] * TSH Reflex FT4 (10/07/2024 11:18 AM EDT) Thyroid Stimulating Hormone, Plasma 0.92 0.40 - 4.20 uIU/mL 10/07/2024 2:[address] [facility] Blood Venous blood specimen / Unknown Venipuncture / Unknown 10/07/2024 11:18 AM EDT 10/07/2024 1:34 PM EDT us Alem Garber MD LAB BLOOD ORDERABLES Leana miah Result [facility] [address] [place] [address] * (ABNORMAL) Comprehensive Metabolic Panel, Plasma (10/07/2024 11:18 AM EDT) Glucose, Plasma 114(H) 74 - 99 mg/dL 10/07/2024 2:[address] [facility] BUN, Plasma 6(L) 8 - 23 mg/dL 10/07/2024 2:[address] [facility] Creatinine, Plasma 0.58(L) 0.70 - 1.20 mg/dL 10/07/2024 2:[address] [facility] BUN/Creatinine Ratio 10 10/07/2024 2:[address] [facility] Sodium, Plasma 140 136 - 145 mmol/L 10/07/2024 2:[address] [facility] Potassium, Plasma 3.4(L) 3.6 - 4.9 mmol/L 10/07/2024 2:[address] [facility] Chloride, Plasma 105 97 - 107 mmol/L 10/07/2024 2:[address] [facility] CO2, Plasma 25 22 - 29 mmol/L 10/07/2024 2:[address] [facility] Anion Gap 10 6 - 16 mmol/L 10/07/2024 2:[address] [facility] Total Calcium, Plasma 8.9 8.9 - 10.2 mg/dL 10/07/2024 2:[address] [facility] Total Protein 7.1 6.3 - 7.9 g/dL 10/07/2024 2:[address] [facility] Albumin, Plasma 3.5 3.5 - 5.2 g/dL 10/07/2024 2:[address] [facility] AST, Plasma 51(H) 10 - 50 U/L 10/07/2024 2:[address] [facility] ALT, Plasma 30 10 - 50 U/L 10/07/2024 2:[address] [facility] Alkaline Phosphatase, Plasma 99 40 - 115 U/L 10/07/2024 2:[address] [facility] Total Bilirubin, Plasma 1.2(H) 0.2 - 1.1 mg/dL 10/07/2024 2:[address] [facility] eGFRcr 111.6 mL/min/1.7 3m*2 10/07/2024 2:[address] [facility] Comment:Reported eGFRcr in m L/min/1.73m2 is based the CKD-EPI 2020 equation that does not use a race coefficient. Blood Venous blood specimen / Unknown Venipuncture / Unknown 10/07/2024 11:18 AM EDT 10/07/2024 1:34 PM EDT us Alem Garber MD LAB BLOOD ORDERABLES Leana l Result [facility] [address] [place] [address] * Hemoglobin A1c (10/07/2024 11:18 AM EDT) Hemoglobin A1c 5.0 <5.7 % 10/07/2024 4:[address] [facility] Blood Venous blood specimen / Unknown Venipuncture / Unknown 10/07/2024 11:18 AM EDT 10/07/2024 1:[address] [facility] - 10/07/2024 4:09 PM EDT HA1C Interpretive Data: Diagnosis of Diabetes: Diabetic > or = 6.5% Pre-diabetic 5.7 to 6.4% Non-diabetic < or = 5.6% Glycemic Targets for Type I and Type II Diabetics: Non- Adults <7.0% Adults <6.0% Children and Adolescents <7.5% Source: [place] [employer]. Standards of medical care in diabetes,2017. Diabetes Care.2017:40 (suppl 1):S1-S135. us Alem Garber MD LAB BLOOD ORDERABLES Leana l Result [facility] [address] [place] [address] documented in this encounter Visit Diagnoses Diagnosis Healthcare maintenance- Primary Chronic low back pain, unspecified back pain laterality, unspecified whether sciatica present Encounter for immunization documented in this encounter Additional Health Concerns Assessment Noted Time PHQ-9 Depression Total Score: 0 10/08/19 25 10:29 AM EDT A fall risk assessment has been complete d for the patient 09/02/2024 11:32 AM EDT A Body Mass Index follow-up plan has been documented for the patient 10/07/2024 9:00 PM EDT documented as of this encounter Care Teams Computer Network Specialist Relationship Specialty Start Date End Date Alem Garber MD [address] [place] [phone] PCP - General Family Medicine 01/20/22 documented as of this encounter
--- OUTSIDE RECORDS SUMMARY | 2024-10-09 08:32 | XMS_ITS | Encounter Summary ---
Author Organization Healthcare Address [address] [place] [address] Care Team Providers Care Child Adolescent Psychiatrist Name Role Phone Alem Garber MD Primary Care Provider [phone] Reason for Referral * Imaging (Routine) - Closed Specialty Diagnoses / Procedures Referred By Bryant joseph Referred To Contact Radiology Diagnoses Cirrhosis of liver without ascites, unspecified hepatic cirrhosis type (CMS/HCC) Procedures US Liver Screen Gina Dailey APRN [address] [address] Phone: tel: fax: Referral ID Status Reason Start Date Expiration Date Visits Re quested Visits Authorized [id number] Closed 04/08/2024 10/08/2025 1 1 Reason for Visit * Imaging (Routine) - Closed Specialty Diagnoses / Procedures Referred By Bryant joseph Referred To Contact Radiology Diagnoses Cirrhosis of liver without ascites, unspecified hepatic cirrhosis type (CMS/HCC) Procedures US Liver Screen Gina Dailey APRN [address] [facility] [address] [place] [address] Phone: tel: fax: Referral ID Status Reason Start Date Expiration Date Visits Re quested Visits Authorized [id number] Closed 04/08/2024 10/08/2025 1 1 Encounter Details Date Type Department Care Team (Latest Contact Info) Description 10/09/2024 8:32 AM EDT - 10/09/2024 11:59 PM EDT Hospital Encounter [facility] [address] [place] [address] Cirrhosis of liver without ascites, unspecified hepatic cirrhosis type (CMS/HCC) Discharge Disposition: Home or Self Care Social [...] Answer Date Recorded Patient Health Questionnaire-2 Score 1 10/09/2024 PHQ-9 Answer Date Recorded Patient Health Questionnaire-9 Score 2 10/09/2024 Humiliation, Afraid, Rape, and Kick questionnair e [...] any time in the past 12 m [facility], were you homeless or living in a custodial (including now)? 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 Question Answer Date of Assessment Author Little interest or pleasure in doing things Not at all 10/09/2024 10:11 AM EDMary Jo Orourke Feeling down, depressed, or hopeless Several days 10/09/2024 10:11 AM EDT Mary Jo Segura Patient Health Questionnaire -2 Score 1 10/09/2024 10:11 AM EDT Mary Jo Segura * Question Answer Date of Assessment Author Trouble falling or staying asleep, or sleeping too much Several days 10/09/2024 10:11 AM EDT Cheryl Segura Feeling tired or having lev le energy Not at all 10/09/2024 10:11 AM EDT Mary Jo Segura Poor appetite or overeating Not at all 10/09/2024 10 :11 AM MAGIT Cheryl Segura Feeling bad about yourself - or that you are a failure or have let yourself or your family down Not at all 10/09/2024 10:11 AM Mary Jo Lee Trouble concentrating on things, such as reading the newspaper or watching television Not at all 10/09/2024 10:11 AM Mary Jo Lee Moving or speaking so slowly that other people could have noticed? Or the opposite - being so fidgety or restless that you have been moving around a lot more than usual. Not at all 10/09/2024 10:11 AM MAGIT Cheryl Lynn Thoughts that you would be better off or hurting yourself in some way Not at all 10/09/2024 10:11 AM Luzma Lee Patient Health Questionnaire -9 Score 2 10/09/2024 10:11 AM EDMary Jo Orourke * If you checked off any problems on this questionnaire so far, Question Answer Date of Assessment Author How difficult have these problems made it for you to do your work, take care of things at home, or get along with other people? Not difficult at all 10/09/2024 10:11 AM Luzma Lee * How difficult have these problems made it for you to do your work, take care of things at home, or get along with other people? Answer Date of Assessment Author Not difficult at all 10/09/2024 10:11 AM EDT Cheryl Weathers documented as of this encounter Medications at Time of Discharge albuterol 108 (90 Base) MCG/ACT inhaler Inhale 2 puffs every 6 hours as needed for wheezing. 18 g 3 10/07/2024 atorvastatin (Lipitor) 40 MG tablet Take 1 tablet by mouth daily. 90 tablet 10/07/2024 cyclobenzaprine (Flexeril) 10 MG tabletIndications: Chronic low back pain, unspecified back pain laterality, unspecified whether sciatica present Take 1 tablet by mouth 2 times a day. 180 tablet 1 10/07/2024 gabapentin (Neurontin) 300 MG capsule Take 1 capsule (300 mg) by mouth 3 (three) times a day. 10/25/2023 lisinopril-hydroCH LOROthiazide 10-12.5 MG tablet Take 1 tablet by mouth daily. 90 tablet 10/07/2024 naloxone (Narcan) 4 mg/0.1 mL nasal spray 08/17/2024 oxyCODONE (Roxicodone) 10 MG immediate release tablet Take 1 tablet (10 mg) by mouth 3 (three) times a day. 30 tablet 03/08/2023 documented as of this encounter Plan of Treatment Upcoming Encounters Date Type Department Care Team (Late st Contact Info) Description 02/06/2025 1:00 PM EST Office Visit [facility] [address] [place] [phone] Alem Garber MD [address] [facility] [address] [place] [phone] 04/08/2025 3:10 PM EST Office Visit [facility] [address] [place] [address] Gina Dailey APRN [address] [place] [phone] documented as of this encounter Procedures Procedure Name Priority Date/Time Associated Diagnosis Comments US LIVER SCREEN Routine 10/09/2024 8:59 AM EDT Cirrhosis of liver without ascites, unspecified hepatic cirrhosis type (CMS/HCC) documented in this encounter Results * US Liver Screen (10/09/2024 8:59 AM EDT) Anatomical Region Laterality Modality Abdomen, Liver Ultrasound Impressions 10/09/2024 7:27 PM EDT Liver demonstrates cirrhotic morphology with no suspicious new lesions. Category Score US-1 Negative. No US evidence of HCC. No observation or Only definitely benign observation(s). Continue with regular screening. Visualization Score Vis B. Moderate limitations. Limitations may obscure small masses. The above scoring system and recommendations are based on Ultrasound LI-RADS version 2017. [email or web address] By electronically signing this report, I, the attending physician, attest that I have personally reviewed the images/data for the above examination(s) and agree with the final edited report. Drafted by Martín Tucker DO on 10/09/2024 9:04 AM Final report signed by Rona Corley MD on 10/09/2024 7:27 PM Narrative 10/09/2024 7:27 PM EDT CLINICAL INDICATION: Cirrhosis r/o HCC TECHNIQUE: Multiplanar static and cine plata scale ultrasound images of the abdomen were obtained, accompanied by selective color Doppler ultrasound images. COMPARISON: Ultrasound liver screen May 28, 2024, MRI abdomen September 12, 2023. FINDINGS: Grayscale: Liver: Liver is coarse and nodular compatible with cirrhosis. Small scattered hepatic anechoic simple cysts. No suspicious focal liver lesions are detected. Portal Vein: There is antegrade flow within the main portal vein. Gallbladder: The gallbladder is absent Common Duct: 6 mm Spleen: The spleen is enlarged measuring 13.8 cm. Free Fluid: There is no ascites Other: N/A Procedure Note Rona Corley MD - 10/09/2024 CLINICAL INDICATION: Cirrhosis r/o HCC TECHNIQUE: Multiplanar static and cine plata scale ultrasound images of the abdomenwere obtained, accompanied by selective color Doppler ultrasound images. COMPARISON: Ultrasound liver screen May 28, 2024, MRI abdomen September 12, 2023. FINDINGS: Grayscale: Liver: Liver is coarse and nodular compatible with cirrhosis. Smallscattered hepatic anechoic simple cysts. No suspicious focal liver lesionsare detected. Portal Vein: There is antegrade flow within the main portal vein. Gallbladder: The gallbladder is absent Common Duct: 6 mm Spleen: The spleen is enlarged measuring 13.8 cm. Free Fluid: There is no ascites Other: N/A IMPRESSION: Liver demonstrates cirrhotic morphology with no suspicious new lesions. Category Score US-1 Negative. No US evidence of HCC. No observation orOnly definitely benign observation(s). Continue with regular screening. Visualization Score Vis B. Moderate limitations. Limitations may obscuresmall masses. The above scoring system and recommendations are based on UltrasoundLI-RADS version 2017. [email or web address] By electronically signing this report, I, the attending physician, angelo I have personally reviewed the images/data for the aboveexamination(s) and agree with the final edited report. Drafted by Martín Tucker DO on 10/09/2024 9:04 AM Final report signed by Rona Corley MD on 10/09/2024 7:27 PM us Gina Dailey TOWER ERECTOR HELPER IMG US PROCEDURES Final Res ult documented in this encounter Visit Diagnoses Diagnosis Cirrhosis of liver without ascites, unspecified hepatic cirrhosis type (CMS/HCC) documented in this encounter Additional Health Concerns Assessment Noted Time PHQ-9 Depression Total Score: 2 10/10/19 25 10:11 AM EDT A fall risk assessment has been complete d for the patient 10/09/2024 10:13 AM EDT A Body Mass Index follow-up plan has been documented for the patient 10/10/2024 8:09 AM EDT documented as of this encounter Care Teams Child Adolescent Psychiatrist Relationship Specialty Start Date End Date Alem Garber MD [address] [place] [phone] PCP - General Family Medicine 01/20/22 documented as of this encounter
--- OUTSIDE RECORDS SUMMARY | 2024-10-09 10:10 | XMS_ITS | Encounter Summary ---
Author Organization [facility] Address [address] [place] [address] Care Team Providers Care Banquet Line Cook Name Role Phone Alem Garber MD Primary Care Provider [phone] Reason for Referral * Imaging (Routine) - Pending Review Specialty Diagnoses / Procedures Referred By Contedilberto t Referred To Contact Radiology Diagnoses Cirrhosis of liver without ascites, unspecified hepatic cirrhosis type (CMS/HCC) Procedures US Liver Screen Gina Dailey APRN [address] [address] Phone: tel: fax: Referral ID Status Reason Start Date Expiration Date V isits Requested Visits Authorized [id number] Pending Review 10/09/2024 04/10/2026 1 1 * Consultation (Routine) - Authorized Specialty Diagnoses / Procedures Referred By Contedilberto t Referred To Contact Diagnoses Cirrhosis of liver without ascites, unspecified hepatic cirrhosis type (CMS/HCC) Gina Dailey APRN [address] [facility] [address] [place] [address] Phone: tel: fax: Referral ID Status Reason Start Date Expiration Date V isits Requested Visits Authorized [id number] Authorized 10/09/2024 04/10/2026 1 1 * Genetic Testing (Routine) - Closed Specialty Diagnoses / Procedures Referred By Contedilberto t Referred To Contact Lab Diagnoses Cirrhosis of liver without ascites, unspecified hepatic cirrhosis type (CMS/HCC) Procedures IgG, Plasma Gina Dailey APRN [address] [facility] [address] [place] [address] Phone: tel: fax: Referral ID Status Reason Start Date Expiration Date Visits Re quested Visits Authorized [id number] Closed 10/09/2024 04/10/2026 1 1 Reason for Visit * Reason Comments Cirrhosis of liver without ascites, unsp ecified hepatic cir Encounter Details Date Type Department Care Team (Late st Contact Info) Description 10/09/2024 10:10 AM EDT Office Visit [facility] Medicine Specialties [address] [place] [address] Gina Dailey APRN [address] [facility] [address] [place] [address] Cirrhosis of liver without ascites, unspecified hepatic cirrhosis type (CMS/HCC) (Primary Dx) Social History Tobacco Use Types [...] any time in the past 12 m [facility], were you homeless or living in a long-term (including now)? No 10/07/2024 [facility] Utilities Answer Date Recorded In the [...] drink first t santosh in the morning (EYE-FRENCH BINDING FOLDER) to steady your nerves or to get [...] Sign Reading Time Taken Comments Blood Pressure 117/75 10/09/2024 10:09 AM EDT Pulse 99 10/09/2024 10:09 AM EDT Temperature 36.7 C (98.1 F) 10/09/2024 10:09 AM EDT Respiratory Rate 18 10/09/2024 10:09 AM EDT Oxygen Saturation 95% 10/09/2024 10:09 AM EDT Inhaled Oxygen Concentration - - Weight 112 kg (245 lb 13 oz) 10/09/2024 10:09 AM EDT Height 175.3 cm (5' 9 ) 10/09/2024 10:09 AM EDT Body Mass Index 36.3 10/09/2024 10:09 AM EDT documented in this encounter Functional Status * Over the past 2 weeks, how often have you been bothered by any of the following problems? Question Answer Date of Assessment Author Little interest or pleasure in doing things Not at all 10/09/2024 10:11 AM EDT Mary Jo Segura Feeling down, depressed, or hopeless Several days [...] Not at all 10/09/2024 10 :11 AM EDT Cheryl Segura Feeling bad about yourself - or that you are a failure or have let yourself or your family down Not at all 10/09/2024 10:11 AM EDT Mary Jo Segura Trouble concentrating on things, such as reading the newspaper or watching television Not at all 10/09/2024 10:11 AM EDT Mary Jo Segura a Moving or speaking so slowly that other people could have noticed? Or the opposite - being so fidgety or restless that you have been moving around a lot more than usual. Not at all 10/09/2024 10:11 AM EDT Cheryl Lynn Thoughts that you would be better off or hurting yourself in some way Not at all 10/09/2024 10:11 AM EDT Luzma Segura Patient Health Questionnaire -9 Score 2 10/09/2024 10:11 AM EDT Mary Jo Segura * If you checked off any problems [...] Cheryl Weathers documented as of this encounter Miscellaneous Notes * Progress Notes - Gina Dailey APRN - 10/09/2024 10:10 AM EDT Subjective Patient ID: Nigel Li is a 59 y.o. male. Chief Complaint Patient presents with Cirrhosis of liver without ascites, unspecified hepatic cir HPI Mr. Li is a 59 y.o. white male who presents to the Liver clinic for follow up for cirrhosis. Past medical history significant for HTN, HLD, bilateral hip replacement, umbilical hernia repair in 06/2021. 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 No alcohol use since 07/2023.Last seen 04/08/2024. Pt reports some swelling in feet and ankles when up on his feet, not waking up with swollen ankles.No jaundice or icterus. No hematochezia or melena. He reports feeling full all the time - he has gained 9lbs in the past 5 months. Does not weigh daily. Reports eating sweets daily - knows he needs to cut down. No diuretic use. No confusion or forgetfulness. Down to 8 cigarettes/day. Overall has noconcerns today. History from previous note: Pt was diagnosed with cirrhosis in many years ago. Was following in the Liver clinic for his Hep C.Has a hx of IV drug use, being residential and unprofessional tattoos. Completed an 8 week course of Mavyret, Completed 12 week course of Vosevi June 2017. Was re-infected with HCV and treated 3 times. SVR 12 n.n. No new risk factors reported. Liver biopsy(05/24) cirrhosis, mild steatosis, and mild hemosiderosis. 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 Pt states he stopped all alcohol use about 3 to 4 months ago. His biggest complaint today is that this umbilical hernia has worsened. It is still soft and reducible. No change in color. Pt has lost about 14 lbs intentionally through diet. Denies nausea, vomiting, hematemesis, coffee-ground emesis. No abdominal pain or swelling. Bowels are moving well. Denies melena or hematochezia. No fevers or chills. No scleral icterus, jaundice or confusion noted. - EGD 06/30/22: small grade 1 varix in the distal esophagus, regular z-line, normal stomach, normal duodenum - Colonoscopy 06/30/22 Perianal and digital rectal exams were without abnormalities. One 6 mm sessile polyp in the sigmoid colon; One 3 mm sessile polyp in the transverse colon; three sessile polyps measuring from 2 mm up to 4 mm in the descending colon - US Liver 12/06/2022: Cirrhotic liver morphology. Unchanged simple cyst in the left hepatic lobe. No new suspicious focal hepatic lesions. No splenomegaly or ascites. Patent hepatic vasculature with appropriate flow directionality. Patent TIPS with continued increase in the velocity gradient acrossthe proximal to mid TIPS. This may indicate TIPS stenosis. - US liver 06/2023: Cirrhotic hepatic morphology. Possible 14 mm echogenic lesion in the left hemiliver. Consider further evaluation with contrast-enhanced MRI or CT. Patent TIPS with borderline elevated velocities in the mid and distal stent. Normal spleen, no ascites The following portions of the chart were reviewed this encounter and updated as appropriate: Tobacco Allergies Meds Problems Med Hx Surg Hx Fam Hx Review of Systems Gastrointestinal: Negative for abdominal distention, abdominal pain, anal bleeding, blood in stool,constipation, diarrhea, nausea, rectal pain and vomiting. All other systems reviewed and are negative. Objective Physical Exam Vitals reviewed. Constitutional: Appearance: Normal appearance. HENT: Head: Normocephalic. Cardiovascular: Rate and Rhythm: Normal rate and regular rhythm. Pulses: Normal pulses. Heart sounds: Normal heart sounds. Pulmonary: Effort: Pulmonary effort is normal. Breath sounds: Normal breath sounds. Abdominal: General: Abdomen is flat. Bowel sounds are normal. Palpations: Abdomen is soft. Hernia: A hernia (umbilical) is present. Musculoskeletal: General: Normal range of motion. Skin: General: Skin is warm and dry. Neurological: General: No focal deficit present. Mental Status: He is alert and oriented to person, place, and time. Psychiatric: Mood and Affect: Mood normal. Behavior: Behavior normal. Thought Content: Thought content normal. Judgment: Judgment normal. Visit Vitals BP 117/75 Pulse 99 Temp 36.7 ??C (98.1 ??F) (Oral) Resp 18 Ht 1.753 m (5' 9 ) Wt 112 kg (245 lb 13 oz) SpO2 95% BMI 36.30 kg/m?? Smoking Status Every Day BSA 2.34 m?? Assessment/Plan MELD 3.0: 11 at 10/09/2024 10:53 AM MELD-Na: 12 at 10/09/2024 10:53 AM Calculated from: Serum Creatinine: 0.58 mg/dL (Using min of 1 mg/dL) at 10/07/2024 11:18 AM Serum Sodium: 140 mmol/L (Using max of 137 mmol/L) at 10/07/2024 11:18 AM Total Bilirubin: 1.2 mg/dL at 10/07/2024 11:18 AM Serum Albumin: 3.5 g/dL at 10/07/2024 11:18 AM INR(ratio): 1.5 at 10/09/2024 10:53 AM Age at listing (hypothetical): 59 years Sex: Male at 10/09/2024 10:53 AM Alcohol cirrhosis - Etiology likely alcohol use, Hep C - HBsAg (-), HIV (-), LKM (-), SLA (-), NISSA (-), SMA 43, IgG 180 Plan: - NO: alcohol, herbal supplements, or NSAIDs. May take Tylenol < 2 grams/day as needed - Reassess MELD q 6 months and consult TXP if 15 or higher consistently - Protein rich diet (1.5 g/kg/day), with late night protein snack - Consider d/c RENÉ inhibitors/ARB/alpha 1 bocker (rf renal impairment) #EV screening - No history of: VH, EVL - Denies: hematemesis, melena, hematochezia - EGD 06/2022 small grade 1 varix in the distal esophagus - Any signs of hemorrhage, treat as emergency and go to nearest ED #HCC surveillance: - US 06/2023 Possible 14 mm echogenic lesion in the left hemiliver - MR abdomen 09/2023: cirrhosis, portal HTN, scattered tiny non enhancing hepatic cysts - LIRADS 1 - US liver 10/09/2024: cirrhosis, continued scattered hepatic anechoic simple cysts, no supicious lesions - AFP 10/2024: 3.7 #Ascites #TIPS - Underwent TIPS in 06/24/21 for umbilical bleed s/p umbilical hernia repair - underwent revision in 12/2022 - following with IR - US 06/2023 Patent TIPS with borderline elevated velocities in the mid and distal stent. Normal spleen, no ascites #Hep C, cured - Has a hx of IV drug use, being residential and unprofessional tattoos. - Completed an 8 week course of Mavyret, Completed 12 week course of Vosevi June 2017. Was re-infected with HCV and treated 3 times. - 12/01/21 HCV RNA n.d. 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 - Reports stopping all alcohol use within the past 3 to 4 months (Spring 2023) - Discussed importance of complete cessation from alcohol in the setting of cirrhosis. He would likely need 6 to 12 months of sobriety if he needed to be evaluated by Transplant - Offered referral to addiction medicine but he refused at our last visit - reports last alcohol use 07/2023 #Umbilical hernia - pt is concerned about worsening hernia - hernia is soft and reducible on exam - has been evaluated by gen surgery - will not repair unless emergent - s/s of incarceration discussed with pt and he should go to the nearest ED if he experiences thesesymptoms Plan: - repeat US in 6 months with US doppler to evaluate TIPS - MELD/AFP ordered today -Variceal screening w/EGD: does not need as long as he has patent TIPS -continue to work on tobacco cessation RTC 6 months #HCM - Colonoscopy 06/30/22 Perianal and digital rectal exams were without abnormalities. One 6 mm sessile polyp in the sigmoid colon; One 3 mm sessile polyp in the transverse colon; three sessile polyps measuring from 2 mm up to 4 mm in the descending colon A. COLON, DESCENDING, BIOPSY: - HYPERPLASTIC POLYP. B. COLON, TRANSVERSE, BIOPSY: - HYPERPLASTIC POLYP. C. COLON, SIGMOID, BIOPSY: - HYPERPLASTIC POLYP. - Repeat colonoscopy recommended for 5 years (~06/2027) documented in this encounter Plan of Treatment Upcoming Encounters Date Type Department Care Team (Late st Contact Info) Description 02/06/2025 1:00 PM EST Office Visit [facility] Ur[facility] [address] [place] [address] Alem Garber MD [address] [place] [id number] 04/08/2025 3:10 PM EST Office Visit [facility] Medicine Specialties [address] [place] [address] Gina Dailey APRN [address] [place] [address] Scheduled Orders Name Type Priority Associated Diagnoses Orde r Schedule US Liver Screen Imaging Routine Cirrhosis of liver without ascites, unspecified hepatic cirrhosis type (CMS/HCC) Expected: 04/08/2025, Expires: 04/12/2026 US Abdomen Doppler Limited Imaging Routine Cirrhosis of liver without ascites, unspecified hepatic cirrhosis type (CMS/HCC) Expected: 04/08/2025 (Approximate), Expires: 04/08/2026 Scheduled Referrals Name Type Priority Associated Diagnoses Orde r Schedule Follow Up GI Outpatient Referral Routine Cirrhosis of liver without ascites, unspecified hepatic cirrhosis type (CMS/HCC) Expected: 04/08/2025, Expires: 11/08/2025 documented as of this encounter Results * (ABNORMAL) CBC and Differential (10/09/2024 10:53 AM EDT) WBC Count 3.91 3.70 - 10.30 10*3/uL LAB HEMATOLOGY METHOD 10/09/2024 11:55 AM EDT [facility] RBC Count 4.37(L) 4.60 - 6.10 10*6/uL LAB HEMATOLOGY METHOD 10/09/2024 11:55 AM EDT [facility] HGB 14.3 13.7 - 17.5 g/dL LAB HEMATOLOGY METHOD 10/09/2024 11:55 AM EDT [facility] HCT 41.8 40.0 - 51.0 % LAB HEMATOLOGY METHOD 10/09/2024 11:55 AM EDT [facility] Platelet Count 122(L) 155 - 369 10*3/uL LAB HEMATOLOGY METHOD 10/09/2024 11:55 AM EDT [facility] MCV 96 79 - 98 fL LAB HEMATOLOGY METHOD 10/09/2024 11:55 AM EDT [facility] MCH 32.7(H) 26.0 - 32.0 pg LAB HEMATOLOGY METHOD 10/09/2024 11:55 AM EDT [facility] MCHC 34.2 30.7 - 35.5 g/dL LAB HEMATOLOGY METHOD 10/09/2024 11:55 AM EDT [facility] RDW 12.9 11.5 - 14.5 % LAB HEMATOLOGY METHOD 10/09/2024 11:55 AM EDT [facility] MPV 9.6 8.8 - 12.5 fL LAB HEMATOLOGY METHOD 10/09/2024 11:55 AM EDT [facility] nRBC 0.0 <=0.0 per 100 WBCs LAB HEMATOLOGY METHOD 10/09/2024 11:55 AM EDT [facility] Differential Type Automated LAB HEMATOLOGY METHOD 10/09/2024 11:55 AM EDT [facility] Neutrophils % 51 % LAB HEMATOLOGY METHOD 10/09/2024 11:55 AM EDT [facility] Lymphocytes % 26 % LAB HEMATOLOGY METHOD 10/09/2024 11:55 AM EDT [facility] Monocytes % 19 % LAB HEMATOLOGY METHOD 10/09/2024 11:55 AM EDT [facility] Eosinophils % 3 % LAB HEMATOLOGY METHOD 10/09/2024 11:55 AM EDT [facility] Basophils % 1 % LAB HEMATOLOGY METHOD 10/09/2024 11:55 AM EDT [facility] Immature Granulocytes % 0 % LAB HEMATOLOGY METHOD 10/09/2024 11:55 AM EDT [facility] Neutrophils Absolute 1.95 1.60 - 6.10 10*3/uL LAB HEMATOLOGY METHOD 10/09/2024 11:55 AM EDT [facility] Lymphocytes Absolute 1.03(L) 1.20 - 3.90 10*3/uL LAB HEMATOLOGY METHOD 10/09/2024 11:55 AM EDT [facility] Monocytes Absolute 0.76 0.30 - 0.90 10*3/uL LAB HEMATOLOGY METHOD 10/09/2024 11:55 AM EDT [facility] Eosinophils Absolute 0.13 0.00 - 0.50 10*3/uL LAB HEMATOLOGY METHOD 10/09/2024 11:55 AM EDT [facility] Basophils Absolute 0.03 0.00 - 0.10 10*3/uL LAB HEMATOLOGY METHOD 10/09/2024 11:55 AM EDT [facility] Immature Granulocytes Absolute 0.01 0.00 - 0.06 10*3/uL LAB HEMATOLOGY METHOD 10/09/2024 11:55 AM EDT [facility] Blood Venous blood specimen / Unknown Venipuncture / Unknown 10/09/2024 10:53 AM EDT 10/09/2024 10:54 AM EDT Narrative [facility] - 10/09/2024 11:55 AM EDT Therapeutic decision making should be based on absolute values, rather than percentages. [facility] LAB BLOOD ORDERABLES Final Result Performing Organization Address City/[facility]/ZIP Co de Phone Number [facility] [address] [place] [address] * (ABNORMAL) Prothrombin Time/INR (10/09/2024 10:53 AM EDT) Prothrombin Time 17.8(H) 12.0 - 14.3 sec LAB COAGULATION METHOD 10/09/2024 12:12 PM EDT [facility] INR 1.5(H) 0.9 - 1.1 LAB COAGULATION METHOD 10/09/2024 12:12 PM EDT [facility] Blood Venous blood specimen / Unknown Venipuncture / Unknown 10/09/2024 10:53 AM EDT 10/09/2024 10:54 AM EDT Narrative [facility] - 10/09/2024 12:12 PM EDT OPTIMAL INR RANGES FOR PATIENT ON ORAL ANTICOAGULANT THERAPY Prevention of venous thromboembolism INR 2.0 to 3.0 In patients with heart disease: Atrial fibrillation INR 2.0 to 3.0 Valvular heart disease INR 2.0 to 3.0 Tissue heart valves INR 2.0 to 3.0 Mechanical prosthetic valves INR 2.5 to 3.5 Prevention of recurrent GA INR 2.5 to 3.5 [facility] LAB BLOOD ORDERABLES Final Result [facility] [address] [place] [address] * Alpha Fetoprotein, Serum (10/09/2024 10:53 AM EDT) Alpha Fetoprotein, Serum 3.7 <10.0 ng/mL 10/09/2024 12:38 PM EDT [facility] Blood Venous blood specimen / Unknown Venipuncture / Unknown 10/09/2024 10:53 AM EDT 10/09/2024 10:54 AM EDT Narrative [facility] - 10/09/2024 12:38 PM EDT Performed by Will electrochemiluminescent immunoassay which is traceable to the 1st [facility] WHO Reference standard 72/255. Results obtained with different test methods or kits cannot be used interchangeably. [facility] LAB BLOOD ORDERABLES Final Result Performing Organization Address [facility] Co de Phone Number [facility] [address] [place] [address] * Mitochondrial antibodies, M2 (10/09/2024 10:53 AM EDT) MITOCHONDRIA M2 AB IGG 19.2 0.0 - 24.9 Units 10/11/2024 3:05 AM EDT [employer] ([facility]) Serum Venous blood specimen / Unknown 10/09/2024 10:53 AM EDT 10/09/2024 10:54 AM EDT Narrative [employer] [facility] ([facility]) - 10/11/2024 3:05 AM EDT REFERENCE INTERVAL: Mitochondrial (M2) Antibody, IgG 20.0 Units or less ......... Negative 20.1 - 24.9 Units........... Equivocal 25.0 Units or greater....... Positive Anti-mitochondrial antibodies (AMA) are thought to be present in 90-95% of patients with primary biliary cholangitis (PBC). However, the frequency of detected antibodies may be cohort or assay dependent, as lower sensitivities have been reported. Not all PBC patients are positive for AMA; some patients may be positive for SP100 and/or GP210 antibodies. A negative result does not rule out PBC. Performed By: [employer] [address] [place] [address] Signal Inspector: Arden Cameron MD, PhD CLIA Number: [id number] [facility] LAB BLOOD ORDERABLES Final Result Performing Organization Address [facility] Co de Phone Number [employer]) [address] [place] [address] * (ABNORMAL) IgG, Plasma (10/09/2024 10:53 AM EDT) IGG 2,143(H) 720 - 1,589 mg/dL 10/09/2024 12:32 PM EDT [facility] Blood Venous blood specimen / Unknown Venipuncture / Unknown 10/09/2024 10:53 AM EDT 10/09/2024 10:54 AM EDT us Gina Dailey [employer] LAB BLOOD ORDERABLES Final Result [facility] [address] [place] [address] documented in this encounter Visit Diagnoses Diagnosis Cirrhosis of liver without ascites, unspecified hepatic cirrhosis type (CMS/HCC)- Primary documented in this encounter Additional Health Concerns Assessment Noted Time PHQ-9 Depression Total Score: 2 10/10/19 25 10:11 AM EDT A fall risk assessment has been complete d for the patient 10/09/2024 10:13 AM EDT A Body Mass Index follow-up plan has been documented for the patient 10/10/2024 8:09 AM EDT documented as of this encounter Care Teams Banquet Line Cook Relationship Specialty Start Date End Date Alem Garber MD [address] [place] [address] [address] [place] [address] PCP - General Family Medicine 01/20/22 documented as of this encounter
[2024-10-13] VITALS (9 sets, daily range): BP systolic 138–156; BP diastolic 72–99; PULSE 89–96; RESP 18–27; TEMP 36.9–37.6; O2SAT 93–98; BMI 36.1
--- NOTE | 2024-10-13 16:36 | ECG_ITS ---
APPROVED REPORT Exam: Resting ECG HR:99 bpm ECG Measurements Heart Rate 99 AXES RI 155 P 67 QRSd 91 QRS 17 QT 351 T 42 QTc 407 Conclusion SINUS RHYTHM NORMAL ECG UNCONFIRMED REPORT Electronically signed by : JESUS PARIS, 10/13/2024 23:02:48
--- OUTSIDE RECORDS SUMMARY | 2024-10-13 16:37 | XMS_ITS | Encounter Summary ---
Author Organization Healthcare Address [address] [place] [address] Care Team Providers Care Public Health Advisor Name Role Phone Alem Garber MD Primary Care Provider [phone] Encounter Details Date Type Department Care Team (Latest Contact Info) Description 10/09/2024 Travel Social History Tobacco Use Types Packs/Day Years [...] any time in the past 12 m [facility], were you homeless or living in a snf (including now)? No 10/07/2024 [facility] Utilities Answer Date Recorded In the [...] drink first t santosh in the morning (EYE-BASKET FILLER) to steady your nerves or to get [...] 10:11 AM EDT Mary Jo Segura a * If you checked off any problems on this questionnaire so far, Question Answer Date of Assessment Author How difficult have these problems made it for you to do your work, take care of things at home, or get along with other people? Not difficult at all 10/09/2024 10:11 AM EDT Luzma Segura ia * How difficult have these problems made it for you to do your work, take care of things at home, or get along with other people? Answer Date of Assessment Author Not difficult at all 10/09/2024 10:11 AM EDT Cheryl Weathers documented as of this encounter Plan of Treatment Upcoming Encounters Date Type Department Care Team (Late st Contact Info) Description 02/06/2025 1:00 PM EST Office Visit [facility] Primary [facility] Ur[facility] Care [address] [place] [address] Alem Garber MD [address] [place] [address] 04/08/2025 3:10 PM EST Office Visit [facility] Medicine Specialties [address] [place] [address] Gina Dailey, [employer] [address] [place] [address] documented as of this encounter Visit Diagnoses Not on filedocumented in this encounter Additional Health Concerns Assessment Noted Time PHQ-9 Depression Total Score: 2 10/10/19 25 10:11 AM EDT A fall risk assessment has been complete d for the patient 10/09/2024 10:13 AM EDT A Body Mass Index follow-up plan has been documented for the patient 10/10/2024 8:09 AM EDT documented as of this encounter Care Teams Public Health Advisor Relationship Specialty Start Date End Date Alem Garber MD [address] [facility] [address] [place] [phone] PCP - General Family Medicine 01/20/22 documented as of this encounter
--- OUTSIDE RECORDS SUMMARY | 2024-10-13 16:37 | XMS_ITS | Clinical Summary ---
Author Organization [facility] Address [address] [place] [address] Care Team Providers Care Supervisor Asbestos Textile Name Role Phone Nimesh Benites MD Primary Care Provider [phone] Allergies Active Allergy Reactions Criticality Noted Date Comments Penicillins Hives Medium 02/14/2013 Medications HYDROcodone-acetami nophen (NORCO) 10-325 MG per tablet 3 times a day 1 Active gabapentin (NEURONTIN) 300 MG capsule 1 Active cyclobenzaprine (FLEXERIL) 10 MG tablet 1 Active aspirin 81 MG EC tablet Take 81 mg by mouth Daily. Active albuterol (ProAir RespiClick) 108 (90 Base) MCG/ACT inhalerIndications: Chronic bronchitis, unspecified chronic bronchitis type Inhale 1-2 puffs Every 4 (Four) Hours As Needed for Wheezing. 1 each 5 1 Active lisinopril-hydrochl orothiazide (PRINZIDE,ZESTORETI C) 10-12.5 MG per tabletIndications:E ssential hypertension Take 1 tablet by mouth Daily. 30 tablet 1 2 Active Acetaminophen Extra Strength 500 MG tablet 2 Active predniSONE (DELTASONE) 10 MG tabletIndications:L umbar disc disease,Bilateral leg pain 4 po x 2 days then 3 po daily x 2 days then 2 po daily x 2 days then 1 po daily x 2 days then stop. 20 tablet 2 Active atorvastatin (LIPITOR) 40 MG tabletIndications:M ixed hyperlipidemia Take 1 tablet by mouth Daily. 30 tablet 5 2 Active Active Problems Problem Noted Date Diagnosed Date Chronic bronchitis 11/02/2020 Mixed hyperlipidemia 11/02/2020 Essential hypertension 11/02/2020 History of hepatitis C 11/02/2020 Overview (11/02/2020): Has been treated. Sees GI Cirrhosis of liver without ascites 11/02/2020 Overview (11/02/2020): h/o Hep C. sees GI Lumbar disc disease 11/02/2020 Chronic pain syndrome 11/02/2020 Bilateral carpal tunnel syndrome 11/02/2020 History of gangrene 11/02/2020 Overview (11/02/2020): Left leg , 1995 , 4 boy[employer] accident Immunizations Immunization Administration Dates Next Due COVID-19 (MODERNA) 1st,2nd,3 rd Dose Monovalent 06/18/2020,05/21/2020 Flu Vaccine Quad PF >36MO 10/30/2020,10/30/2019, 11/15/2018 Pneumococcal Polysaccharide (PPSV23) 11/15/2018 Tdap 07/10/2014 Family History Medical History Relation Name Comments Stroke Brother covid complicat ion COPD Father Dementia Mother Relation Name Status Comments Brother Father Mother Alive Social History Tobacco Use Types Packs/Day Years Used Date Smoking Tobacco: Every Day Cigarettes Smokeless Tobacco: Never Alcohol Use Standard Drinks/Week Comments Yes 4 (1 standard drink = 0.6 oz pur e alcohol) Abuse Screen Answer Date Recorded Unsafe at Home or Work/School Not on file Feels Threatened by Someone? Not on file 10/2022 Does Anyone Keep You from Co ntacting Others or Doint Things Outside the Home? Not on file 11/13/2022 Physical Sign of Abuse Present Not on file 1 Housing Stability Answer Date Recorded Current Living Arrangements Not on file 10/2022 Potentially Unsafe Housing Conditions Not on gabrielle e 11/13/2022 Family and Community Support Answer Booker e Recorded Help with Day-to-Day Activities Not on file 11/13/2022 Lonely or Isolated Not on file 11/13/2022 Employment Answer Date Recorded Do you want help finding or keeping work or a josefina b? Not on file 11/13/2022 Disabilities Answer Date Recorded Concentrating, Remembering, or Making Decisions Difficulty Not on file 11/13/2022 Doing Errands Independently Difficulty Not on fi le 11/13/2022 Education Answer Date Recorded Help with school or training? Not on file Preferred Language Not on file 11/13/2022 Sex and Gender Information Value Date Recorded Sex Assigned at Not on file Legal Sex Male 10:30 AM EDT Gender Identity Not on file Sexual Orientation Not on file Last Filed Vital Signs Vital Sign Reading Time Taken Comments Blood Pressure 134/82 07/26/2021 10:31 AM EDT Pulse 76 07/26/2021 10:31 AM EDT Temperature 37.4 C (99.3 F) 07/26/2021 10:31 AM EDT Respiratory Rate 18 07/26/2021 10:31 AM EDT Oxygen Saturation 97% 07/07/2021 12:00 PM EDT Inhaled Oxygen Concentration - - Weight 102 kg (225 lb) 07/26/2021 10:31 AM EDT Height 177.8 cm (5' 10 ) 07/26/2021 10:31 AM EDT Body Mass Index 32.28 07/26/2021 10:31 AM EDT Plan of Treatment Health Maintenance Due Date Last Done Comments COLOGUARD 2009 COLON CANCER SCREENING 5 YEA [address]MO[address] COLONOGRAPHY 2009 FECAL OCCULT BLOOD TEST 2009 FIT Testing (1 year) 2009 ZOSTER VACCINE (1 of 2) 2014 ANNUAL PHYSICAL 10/08/2019 Pneumococcal Vaccine 50+ (2 of 2 - PCV) 11/16/2019 11/15/2018 TDAP/TD VACCINES (2 - Td or Tdap) 07/10/2024 015 COVID-19 Vaccine (4 - 2024-2 6 season) 2024 01/10/2021, 06/18/2020, 05/21/2020 INFLUENZA VACCINE 11/05/2024 12/01/2021, , 10/30/2019, Additional history exists LIPID PANEL 10/07/2025 10/07/2024, 06/0 08/2022, 11/02/2020 COLONOSCOPY 06/30/2032 06/30/2022, 03/09, 04/03/2019 COLORECTAL CANCER SCREENING 06/30/2032 HEPATITIS C SCREENING Completed 11/02/2020 Procedures Procedure Name Priority Date/Time Associated Diagnosis Comments LIPID PANEL W/ CHOL/HDL RATIO Routine 11/02/2020 12:53 PM EDT Mixed hyperlipidemia from Last 3 Months or Most Recently Relevant to Health Maintenance Results * (ABNORMAL) Lipid Panel With / Chol / HDL Ratio (11/02/2020 12:53 PM EDT) Total Cholesterol 192 100 - 199 mg/dL [facility] Triglycerides 102 0 - 149 mg/dL [facility] HDL Cholesterol 60 >39 mg/dL [facility] VLDL Cholesterol Yann 18 5 - 40 mg/dL [facility] LDL Chol Calc (NIH) 114(H) 0 - 99 mg/dL [facility] Chol/HDL Ratio 3.2 0.0 - 5.0 ratio [facility] Comment: T. Chol/HDL Ratio Men Women 1/2 Avg.Risk 3.4 3.3 Avg.Risk 5.0 4.4 2X Avg.Risk 9.6 7.1 3X Avg.Risk 23.4 11.0 Blood 11/02/2020 12:5 3 PM EDT 11/02/2020 Narrative [facility] ([facility]) - 11/03/2020 9:10 AM EDT Performed at: 01 - [facility] [address] [place] [id number] Groundwater Consultant: Dane Ghotra PhD, Phone: [phone] Patient Fasting: N us Nimesh Benites MD LAB BLOOD ORDERABLES Final Resu lt [facility] ([facility]BULAT[facility]) [address] [id number], [facility] [address] [place] [address], from Last 3 Months or Most Recently Relevant to Health Maintenance Insurance [facility] MEDICAID Care Teams Supervisor Asbestos Textile Relationship Specialty Start Date End Date Nimesh Benites MD [address] [place] [address] PCP - General Family Medicine 10/08/20
--- OUTSIDE RECORDS SUMMARY | 2024-10-13 16:38 | XMS_ITS | Encounter Summary ---
Author Organization Healthcare Address [address] [place] [address] Care Team Providers Care Senior Dentist Name Role Phone Alem Garber MD Primary Care Provider [phone] Encounter Details Date Type Department Care Team (Late st Contact Info) Description 10/07/[address] [facility] [address] [place] [address] Alem Garber MD [address] [place] [address] Social History Tobacco Use Types Packs/Day Years [...] any time in the past 12 m [facility], were you homeless or living in a residential (including now)? No 10/07/2024 [facility] Utilities Answer Date Recorded In the past 12 months has e electric, gas, oil, or water company [...] drink first t santosh in the morning (EYE-EXCHANGE ARCHITECT) to steady your nerves or to get [...] Not at all 10/07/2024 10:29 AM EDT Jeff Milly I Feeling down, depressed, or hopeless Not at all 10/07/2024 10:29 AM EDT [place] Milly I Patient Health Questionnaire -2 Score 0 10/07/2024 10:29 AM EDT [place] Milly I * Question Answer Date of Assessment Author Trouble falling or staying asleep, or sleeping too much Not at all 10/07/2024 10:29 AM EDT Emir s Milly I Feeling tired or having lev le energy Not at all 10/07/2024 10:29 AM EDT [place] Milly I Poor appetite or overeating Not at all 10/07/2024 10 :29 AM EDT [place] Milly I Feeling bad about yourself - or that you are a failure or have let yourself or your family down Not at all 10/07/2024 10:29 AM EDT [place] Milly I Trouble concentrating on things, such as reading the newspaper or watching television Not at all 10/07/2024 10:29 AM EDT Jeff Milly I Moving or speaking so slowly that other people could have noticed? Or the opposite - being so fidgety or restless that you have been moving around a lot more than usual. Not at all 10/07/2024 10:29 AM EDT Broadd , Milly I Thoughts that you would be better off or hurting yourself in some way Not at all 10/07/2024 10:29 AM EDT [place], Peyto n I Patient Health Questionnaire -9 Score 0 10/07/2024 10:29 AM EDT [place], Milly I * Calculated C-SSRS Risk Score (Lifetime/Recent) Answer Date of Assessment Author No Risk Indicated 10/07/2024 10:28 AM EDT Broadd , Milly I * If you checked off any problems on this questionnaire so far, Question Answer Date of Assessment Author How difficult have these problems made it for you to do your work, take care of things at home, or get along with other people? Not difficult at all 10/07/2024 10:29 AM EDT [place], Peyto n I * Question Answer Date of Assessment Author 1. Wish to be (Past 1 Month) No 025 10:28 AM EDT [place], Milly I 2. Non-Specific Active Suici livan Thoughts (Past 1 Month) No 10/07/2024 10:28 AM EDT [place], Pe yton I 6. Suicidal Behavior (Lifetime) No 10:28 AM EDT [place], Imlly I documented as of this encounter Miscellaneous Notes * Telephone Encounter - Nati Salguero RN - 10/08/2024 12:37 PM EDT Spoke w/ pharmacy and they are changing to [employer] for insurance purposes for subsequent fills. Most recently filled 10/02/24. JM documented in this encounter Plan of Treatment Upcoming Encounters Date Type Department Care Team (Late st Contact Info) Description 02/06/2025 1:00 PM EST Office Visit [facility] Care [address] [place] [phone] Alem Garber MD [address] [facility] [address] [place] [phone] 04/08/2025 3:10 PM EST Office Visit [facility] [address] [place] [address] Gina Dailey, FINISHED CLOTH EXAMINER [address] [place] [address] documented as of this encounter Visit Diagnoses [...] documented as of this encounter Care Teams Senior Dentist Relationship Specialty Start Date End Date Alem Garber MD [address] [place] [address] [address] [place] [phone] PCP - General Family Medicine 01/20/22 documented as of this encounter
--- OUTSIDE RECORDS SUMMARY | 2024-10-13 16:38 | XMS_ITS | Encounter Summary ---
Author Organization Healthcare Address [address] [place] [address] Care Team Providers Care Treasurer Name Role Phone Alem Garber MD Primary Care Provider [phone] Encounter Details Date Type Department Care Team (Late st Contact Info) Description 06/10/2024 Results Follow-Up [facility] Medicine Specialties [address] [place] [address] Gina Dailey, AUTOMATED MANUFACTURING INSTRUCTOR [address] [place] [address] Social History Tobacco Use Types Packs/Day Years [...] any time in the past 12 m [facility], were you homeless or living in a senior care (including now)? No 10/07/[address] [facility] Utilities Answer Date Recorded In the [...] drink first t santosh in the morning (EYE-TEXTILE PIN WORKER) to steady your nerves or to [...] AM EDT Mary Jo Segura a * Question Answer Date of Assessment Author Trouble falling or staying asleep, or sleeping too much Several days 10/09/2024 10:11 AM EDT Cheryl Segura Feeling tired or having lev le energy Not at all 10/09/2024 10:11 AM EDT Mary Jo Segura a Poor appetite or overeating Not at all 10/09/2024 10 :11 AM EDT Cheryl Segura Feeling bad about yourself - or that you are a failure or have let yourself or your family down Not at all 10/09/2024 10:11 AM EDT Mary Jo Segura a Trouble concentrating on things, such as reading [...] 10:11 AM EDT Mary Jo Segura * Calculated C-SSRS Risk Score (Lifetime/Recent) Answer [...] all 10/09/2024 10:11 AM EDT Luzma Segura * How difficult have these problems made it for you to do your work, take care of things at home, or get along with other people? Answer Date of Assessment Author Not difficult at all 10/09/2024 10:11 AM EDT Cheryl Weathers * Question Answer Date of Assessment Author 1. Wish to be (Past 1 Month) No 025 10:28 AM EDT Robbi Aguilaryton I 2. Non-Specific Active Suici livan Thoughts (Past 1 Month) No 10/07/2024 10:28 AM EDT Robbi Aguilar yton I 6. Suicidal Behavior (Lifetime) No 10:28 AM EDT Robbi Aguilaryton I documented as of this encounter Plan of Treatment Upcoming Encounters Date Type Department Care Team (Late st Contact Info) Description 02/06/2025 1:00 PM EST Office Visit [facility] Primary and Urgent Care [address] [place] [address] Alem Garber MD [address] [facility] [address] [place] [phone] 04/08/2025 3:10 PM EST Office Visit [facility] [address] [place] [address] Gina Dailey, AUTOMATED MANUFACTURING INSTRUCTOR [address] [place] [address] documented as of this encounter Visit Diagnoses Not on filedocumented in this encounter Additional Health Concerns Assessment Noted Time PHQ-9 Depression Total Score: 3 04/09/19 25 8:25 AM EST A fall risk assessment has been complete d for the patient 04/08/2024 8:25 AM EST A Body Mass Index follow-up plan has been documented for the patient 05/29/2024 6:57 PM EDT documented as of this encounter Care Teams Treasurer Relationship Specialty Start Date End Date Alem Garber MD [address] [facility] [address] [place] [phone] PCP - General Family Medicine 01/20/22 documented as of this encounter
--- OUTSIDE RECORDS SUMMARY | 2024-10-13 16:38 | XMS_ITS | Encounter Summary ---
Author Organization Healthcare Address [address] [place] [address] Care Team Providers Care Rotary Rock Drilling Machine Operator Name Role Phone Alem Garber MD Primary Care Provider [phone] Encounter Details Date Type Department Care Team (Late st Contact Info) Description 09/19/2024 Telephone [facility] [address] [place] [address] Beckie Hood, RN CH-PAV A 7 T2 UNI Social History Tobacco Use Types Packs/Day Years [...] place to sleep or slept in a prison (including now)? No 09/19/2023 PHQ-9 Answer Date [...] drink first t santosh in the morning (EYE-FITNESS INSTRUCTOR) to steady your nerves or to get [...] on file documented as of this encounter Miscellaneous Notes * Telephone Encounter - Beckie Hood RN - 09/19/2024 1:52 PM EDT Called patient. He reports purple discoloration around belly button. Patient had umbilical hernia repair with Dr. Poole in 2021. He says now the hernia has popped back out and increased in size. Denies pain, fever, chills, nausea, vomiting. LBM was 2 days ago but it was extra hard. Takes stool softeners daily. Is still passing gas. He says Dr. Poole told him to call if any changes. Picture requested to be sent for review. He is going to see his sister in about an hour and will ask her to take it. [id number] picture received and uploaded. Dr. Poole notified. Dr. Poole identified this as a varix. Instructions for patient: If and when it pops, apply pressure. If unable to stop the bleeding, go to local ED. Called patient [phone] No answer. No voicemail available. * Telephone Encounter - Beckie Hood RN - 09/19/2024 10:31 AM EDT Attempted to call. No answer. No voicemail available. documented in this encounter Plan of Treatment Upcoming Encounters Date Type Department Care Team (Late st Contact Info) Description 02/06/2025 1:00 PM EST Office [facility] [address] [place] [phone] Alem Garber MD [address] [place] [phone] 04/08/2025 3:10 PM EST Office Visit [facility] [address] [place] [address] Gina Dailey, BLOW PIT HELPER [address] [place] [phone] documented as of this encounter Visit Diagnoses [...] documented as of this encounter Care Teams Rotary Rock Drilling Machine Operator Relationship Specialty Start Date End Date Alem Garber MD [address] [place] [phone] PCP - General Family Medicine 01/20/22 documented as of this encounter
--- OUTSIDE RECORDS SUMMARY | 2024-10-13 16:38 | XMS_ITS | Clinical Summary ---
Author Organization [facility] Address [address] [place] [address] Care Team Providers Care Cable Operator Name Role Phone Alem Garber MD Primary Care Provider [phone] Allergies Active Allergy Reactions Criticality Noted Date Comments Penicillins Hives Medium 02/14/2013 Medications oxyCODONE (Roxicodone) 10 MG immediate release tablet Take 1 tablet (10 mg) by mouth 3 (three) times a day. 30 tablet 4 Active gabapentin (Neurontin) 300 MG capsule Take 1 capsule (300 mg) by mouth 3 (three) times a day. 4 Active naloxone (Narcan) 4 mg/0.1 mL nasal spray 5 Active lisinopril-hydro CHLOROthiazide 10-12.5 MG tablet Take 1 tablet by mouth daily. 90 tablet 5 Active atorvastatin (Lipitor) 40 MG tablet Take 1 tablet by mouth daily. 90 tablet 5 Active albuterol 108 (90 Base) MCG/ACT inhaler Inhale 2 puffs every 6 hours as needed for wheezing. 18 g 3 5 Active cyclobenzaprine (Flexeril) 10 MG tabletIndication s:Chronic low back pain, unspecified back pain laterality, unspecified whether sciatica present Take 1 tablet by mouth 2 times a day. 180 tablet 1 5 Active cyclobenzaprine (Flexeril) 10 MG tabletIndication s:Chronic low back pain, unspecified back pain laterality, unspecified whether sciatica present Take 1 tablet (10 mg) by mouth 2 (two) times a day. 180 tablet 3 4 10/08/19 25 Discontinue d(Reorder) albuterol 108 (90 Base) MCG/ACT inhaler Inhale 2 puffs every 6 (six) hours if needed for wheezing. 18 g 3 4 10/08/19 25 Discontinue d(Reorder) methylPREDNISolo ne (Medrol Dospak) 4 MG tablets Take as directed. 1 each 5 10/08/19 25 Discontinue d(Per Patient Report) lisinopril-hydro CHLOROthiazide 10-12.5 MG tablet Take 1 tablet by mouth daily. 90 tablet 5 10/08/19 25 Discontinue d(Reorder) atorvastatin (Lipitor) 40 MG tablet Take 1 tablet by mouth daily. 90 tablet 5 10/08/19 25 Discontinue d(Reorder) Active Problems Problem Noted Date Diagnosed Date Primary osteoarthritis of left hip 03/07/2023 Hip pain, right 12/26/2022 Right hip pain 10/18/2022 Pain of right hip 07/11/2022 Overview (07/11/2022): Added automatically from request for surgery [id number] At high risk for falls 04/21/2022 Encounter for post surgical wound check 06/28/19 Overview (06/27/2021): POD2 from primary umbilical hernia repair Start ceftriaxone given erythema, likely progression to secondary bacterial peritonitis Consider paracentesis to aid with ongoing drainage History of umbilical hernia repair 06/27/2021 High cholesterol 06/24/2021 Primary hypertension 06/24/2021 Mild intermittent asthma without complication Simple chronic bronchitis 06/24/2021 Chronic midline low back pain with bilateral sci atica 06/24/2021 Class 1 obesity in adult 06/23/2021 Overview (06/27/2021): Complicates all aspects care Increases the risks of recurrence with hernia repair. Cirrhosis 06/23/2021 Overview (06/27/2021): Complicates all aspects of care, wound healing S/p TIPS with Interventional Radiology on 06/25 Concern for secondary bacterial peritonitis related to ascites drainage and risk of infection through recent wound Portal hypertension 06/21/2021 Overview (06/27/2021): S/p TIPS Ongoing mild ascites drainage Abdominal varicosities 06/21/2021 Overview (06/27/2021): POA Umbilical hernia without obstruction and without gangrene 06/21/2021 Overview (06/27/2021): S/p repair on 06/25/21 Now draining ascites post-operatively with mild erythema Resolved Problems Problem Noted Date Diagnosed Date Resolved Date Umbilical hernia 06/21/2021 06/27/2021 Overview (06/23/2021): -see above Encounters Date Type Department Care Team Description 10/09/2024 10:10 AM EDT Office Visit [facility] Medicine Specialties [address] [place] [address] Gina Dailey APRN Cirrhosis of liver without ascites, unspecified hepatic cirrhosis type (CMS/HCC) (Primary Dx) 10/09/2024 8:32 AM EDT - 10/09/2024 11:59 PM EDT Hospital Encounter [facility] [address] [place] [address] Cirrhosis of liver without ascites, unspecified hepatic cirrhosis type (CMS/HCC) Discharge Disposition: Home or Self Care 10/09/2024 Travel 10/07/2024 10:00 AM EDT Office Visit [facility] [address] [place] [address] Alem Garber MD Healthcare maintenance (Primary Dx); Chronic low back pain, unspecified back pain laterality, unspecified whether sciatica present; Encounter for immunization 10/07/2024 Telephone [facility] [address] [place] [address] Alem Garber MD 10/07/2024 Travel 09/19/2024 Telephone [facility] General Surgery [address] [place] [address] Beckie Hood RN 09/02/2024 11:40 AM EDT Office Visit Medical [facility] [address] [facility], [address] [place] [address] Yandel Lewis MD History of bilateral hip replacements (Primary Dx) 09/02/2024 11:14 AM EDT - 09/02/2024 11:59 PM EDT Hospital Encounter Medical Office Building Radiology [address] [place] [address] Hip pain, right Discharge Disposition: Home or Self Care 09/02/2024 Travel from Last 3 Months Immunizations Immunization Administration Dates Next Due Influenza, Unspecified 10/30/2020,10/30/2019,12/2018 Influenza, injectable, quadrivalent 12/18/2015 Influenza, injectable, quadr ivalent, preservative free 12/01/2021,10/30/2020,10/30/2019,11/15 Influenza, seasonal, injectable 12/01/2021,10/30,11/15/2018 Influenza, seasonal, injecta ble, preservative free 12/26/2023 Moderna COVID-19 Vaccine (Re d Cap) 12+ years 01/10/2021 Pneumococcal 20-edwin Conj Vaccine 12/26/2023 Pneumococcal Polysaccharide PPV23 11/15/2018 Tdap 07/10/2014 Zoster, Recombinant 10/07/2024 Family History Medical History Relation Name Comments Hypertension Brother Lung disease Father Dementia Mother Diabetes Mother Hypertension Mother Hypertension Sister Anesthesia problems Neg Hx Malig Hyperthermia Neg Hx Relation Name Status Comments Brother Father Mother Alive Sister Social History Tobacco Use Types Packs/Day Years Used Date Smoking Tobacco: Every Day Cigarettes 1.9 48.7 Started: 1976 Passive Smoke Exposure: Current Smokeless Tobacco: Never Tobacco Cessation:Ready to Q uit: Not Asked; Counseling Given: Not Answered Comments:6/7 Cigarettes a day Alcohol Use Standard Drinks/Week Comments Not Currently [...] any time in the past 12 m [facility], were you homeless or living in a intermediate (including now)? No 10/07/2024 [facility] Utilities Answer Date Recorded In the past [...] drink first t santosh in the morning ([employer]) to steady your nerves or to get rid of a hangover? 0 03/19/2023 CAGE Questionnaire Score 0 024 PHQ-2A Answer Date Recorded Depression Risk 0 02/16/2022 Sex and Gender Information Value Date Recorded Sex Assigned at Male 06/25/2021 6:41 AM EDT Legal Sex Male 8:11 PM EDT Gender Identity Male 06/25/2021 6:41 AM EDT Sexual Orientation Not on file Last Filed [...] Mass Index 36.3 10/09/2024 10:09 AM EDT Plan of Treatment Upcoming Encounters Date Type Department Care Team (Late st Contact Info) Description 02/06/2025 1:00 PM EST Office Visit [facility] [address] [place] [phone] Alem Garber MD [address] [place] [address] 04/08/2025 3:10 PM EST Office Visit [facility] Medicine Specialties [address] [place] [address] Gina Dailey, JUNIOR LOAN PROCESSOR [address] [place] [address] Health Maintenance Due Date Last Done Comments [facility]-Infant/Child/Adol SDOH Screenings 1965 [facility]-Hepatitis A Vaccines (1 of 2 - Risk 2-dose series) 04/17/1983 CT Colonography 2009 FIT-DNA 2009 FIT 2009 FOBT 2009 Sigmoidoscopy 2009 [facility]-RSV Vaccine: 60+ Years or (1 - Risk 60-74 years 1-dose series) 2024 [facility]-DTaP,Tdap,and Td Vaccines (2 - Td or Tdap) 07/10/2024 07/10/2014 [id number] Vaccine ( - season) 2024 01/10/2021, 06/18/2020, 05/21/2020 [facility]-Influenza Vaccine (#1) 10/06/202412/25, 12/01/2021, 12/01/2021, Additional history exists [facility]-Lung Cancer Screening 10/10/2024 10/11/2023 [facility]-Zoster Vaccines (2 of 2) 12/02/2024 10/07/2024 [facility]- SDOH Screenings 04/06/2025 [facility]-Adult SDOH Screenings 04/06/2025 10/07/2024 Colonoscopy 06/29/2025 06/30/2022, 04/03/2019 [facility]-Colorectal Cancer Screening 06/29/2025 [facility]-Depression Screening 10/09/2025 025, 10/09/2024, 02/16/2022 [facility]-Hepatitis C Screening Completed 2021, 12/27/2020, 11/04/2020, Additional history exists [facility]-Pneumococcal Vaccine: 50+ Years Completed 12/26/2023, 11/15/2018 [facility]-HIV Screening Completed 04/14/2024, , 12/27/2020, Additional history exists [facility]-Obesity Intervention Completed 025, 10/07/2024, 09/02/2024, Additional history exists HPV Vaccines Aged Out No longer eligi ble based on patient's age to complete this topic [facility]-HIB Vaccines Aged Out No longer e ligible based on patient's age to complete this topic [facility]-IPV Vaccines Aged Out No longer e ligible based on patient's age to complete this topic [facility]-Rotavirus Vaccines Aged Out No lo nger eligible based on patient's age to complete this topic Medical Devices Implanted Type Area Communication Manager Device Identifier Shelf Expiration Date Model / Serial / Lot Shell Trident Ii Cluster 52mm - [id number] Implanted:Qty: 1 on 10/18/2022 by Yandel Lewis MD at [facility] Hip Right: Hip [employer] ([facility])-139 68 09/12/2027 [id number] / / [id number] Liner Trident X3 10deg 36 Mm Id 5.9 Mm - [id number] Implanted:Qty: 1 on 10/18/2022 by Yandle Lewis MD at [facility] Hip Right: Hip [employer] ([facility])-139 68 08/24/2026 723-10-36E / / [id number] Hip Size 4 Accolade Ii 127 Deg - [id number] Implanted:Qty: 1 on 10/18/2022 by Yandel Lewis MD at [facility] Hip Right: Hip [employer] [facility][id number] [id number] 01/05/2026 [id number] / / [id number] Chg Head Delta V-40 Ceramic 36 - [id number] Implanted:Qty: 1 on 10/18/2022 by Yandel Lewis MD at [facility] Hip Right: Hip [employer] ([facility])-[id number] 68 05/04/2027 6570-0-136 / / [id number] Chg Head Delta V-40 Ceramic 36 - [id number] Implanted:Qty: 1 on 03/07/2023 by Yandel Lewis MD at [facility] Hip Left: Hip [employer] ([facility])-[id number] 68 10/31/2027 6570-0-136 / / [id number] Shell Trident Ii Cluster 52mm - [id number] Implanted:Qty: 1 on 03/07/2023 by Yandel Lewis MD at [facility] Hip Left: Hip [employer] ([facility])-1391 68 01/24/2028 [id number] / / [id number] Liner Trident X3 10deg 36 Mm Id 5.9 Mm - [id number] Implanted:Qty: 1 on 03/07/2023 by Yandel Lewis MD at [facility] Hip Left: Hip [employer] ([facility])-1391 68 12/31/2027 723-10-36E / / [id number] Hip Size 6 Accolade Ii 127 Deg - [id number] Implanted:Qty: 1 on 03/07/2023 by Yandel Lewis MD at [facility] Hip Left: Hip [employer] ([facility])-1391 68 01/11/2028 [id number] / / [id number] Screw 6.5mm Trident Low Profile Hex 25mm - [id number] Implanted:Qty: 1 on 10/18/2022 by Yandel Lewis MD at [facility] Screw Right: Hip [employer] ([facility])-1391 68 06/29/2027 [id number] / / [id number] Screw 6.5mm Trident Low Profile Hex 40mm - [id number] Implanted:Qty: 1 on 03/07/2023 by Yandel Lewis MD at [facility] Screw Left: Hip [employer] ([facility]1391 68 10/30/2027 [id number] / / [id number] Stent Endoprosthesis Tips Viatorr 10mm X 6mm - [id number] Implanted:Qty: 1 on 06/24/2021 by Dayanara Renee, RN at [facility] [employer]-[id number] 04/11/2024 [id number] / [id number] / [id number] Stent Endoprosthesis Tips Viatorr 10mm X 4mm - [id number] Implanted:Qty: 1 on 06/24/2021 by Dayanara Renee, LEYDI at [facility] [employer]-[id number] 04/10/2023 [id number] / [id number] / [id number] Procedures Procedure Name Priority Date/Time Associated Diagnosis Comments IGG, PLASMA Routine 10/09/2024 10:53 AM EDT Cirrhosis of liver without ascites, unspecified hepatic cirrhosis type (CMS/HCC) MITOCHONDRIAL M2 ANTIBODY, IGG (ROC)(SO) Routine 10/09/2024 10:53 AM EDT Cirrhosis of liver without ascites, unspecified hepatic cirrhosis type (CMS/HCC) ALPHA FETOPROTEIN, SERUM Routine 10/09/2024 10:53 AM EDT Cirrhosis of liver without ascites, unspecified hepatic cirrhosis type (CMS/HCC) CBC WITH AUTO DIFFERENTIAL Routine 10/09/2024 10:53 AM EDT Cirrhosis of liver without ascites, unspecified hepatic cirrhosis type (CMS/HCC) PROTHROMBIN TIME(PT) / INR Routine 10/09/2024 10:53 AM EDT Cirrhosis of liver without ascites, unspecified hepatic cirrhosis type (CMS/HCC) US LIVER SCREEN Routine 10/09/2024 8:59 AM EDT Cirrhosis of liver without ascites, unspecified hepatic cirrhosis type (CMS/HCC) FREE T4, PLASMA Routine 10/07/2024 11:18 AM EDT Healthcare maintenance VITAMIN D 25 HYDROXY Routine 10/07/2024 11:18 AM EDT Healthcare maintenance VITAMIN B12, SERUM Routine 10/07/2024 11 :18 AM EDT Healthcare maintenance LIPID PROFILE, PLASMA Routine 10/07/2024 11:18 AM EDT Healthcare maintenance TSH REFLEX FT4 Routine 10/07/2024 11:18 AM EDT Healthcare maintenance COMPREHENSIVE METABOLIC PANEL, PLASMA Routine 10/07/2024 11:18 AM EDT Healthcare maintenance HEMOGLOBIN A1C Routine 10/07/2024 11:18 AM EDT Healthcare maintenance XR HIP RIGHT 2 OR 3 VIEWS Routine 09/02/2024 11:28 AM EDT Hip pain, right ED HIV 1/2 ANTIBODY/ANTIGEN SCREEN WITH REFLEX TO HIV I/II DIFFERENTIATION STAT 04/14/2024 7:[address] CHEST LUNG CANCER SCREENING Routine 10/11/2023 12:25 PM EDT Tobacco abuse COLONOSCOPY Routine 06/30/2022 9:55 AM EDT Cirrhosis of liver without ascites, unspecified hepatic cirrhosis type (CMS/HCC) HEPATITIS C VIRUS (HCV) QUANTITATIVE PCR Routine 12/01/2021 2:07 PM EDT Cirrhosis of liver without ascites, unspecified hepatic cirrhosis type (CMS/HCC) from Last 3 Months or Most Recently Relevant to Health Maintenance Results * Alpha Fetoprotein, Serum (10/09/2024 10:53 AM EDT) Alpha Fetoprotein, Serum 3.7 <10.0 ng/mL 10/09/2024 12:38 PM EDT [facility] Blood Venous blood specimen / Unknown Venipuncture / Unknown 10/09/2024 10:53 AM EDT 10/09/2024 10:54 AM EDT Narrative [facility] - 10/09/2024 12:38 PM EDT Performed by Will electrochemiluminescent immunoassay which is traceable to the 1st [facility] IRP WHO Reference standard 72/255. Results obtained with different test methods or kits cannot be used interchangeably. [facility] LAB BLOOD ORDERABLES Final Result Performing Organization Address [facility] Co de Phone Number [facility] [address] [place] [address] * Mitochondrial antibodies, M2 (10/09/2024 10:53 AM EDT) MITOCHONDRIA M2 AB IGG 19.2 0.0 - 24.9 Units 10/11/2024 3:05 AM EDT [facility] ([facility]RI) Serum Venous blood specimen / Unknown 10/09/2024 10:53 AM EDT 10/09/2024 10:54 AM EDT Narrative [facility] CANDIDA) - 10/11/2024 3:05 AM EDT REFERENCE INTERVAL: [...] does not rule out PBC. Performed By: [facility] [address] [place] [address] Log Turner: Arden Cameron MD, PhD CLIA Number: [id number] [facility] LAB BLOOD ORDERABLES Final Result Performing Organization Address [facility]/ZIP Co de Phone Number [facility] [address] [place] [address] * (ABNORMAL) Prothrombin Time/INR (10/09/2024 10:53 AM EDT) Pathologist [facility] Prothrombin Time 17.8(H) 12.0 - 14.3 sec LAB COAGULATION METHOD 10/09/2024 12:12 PM EDT [facility] INR 1.5(H) 0.9 - 1.1 LAB COAGULATION METHOD 10/09/2024 12:12 PM EDT [facility] Blood Venous blood specimen / Unknown Venipuncture / Unknown 10/09/2024 10:53 AM EDT 10/09/2024 10:54 AM EDT [facility] - 10/09/2024 12:12 PM EDT OPTIMAL INR RANGES FOR PATIENT ON ORAL ANTICOAGULANT THERAPY Prevention of venous thromboembolism INR 2.0 to 3.0 In patients with heart disease: Atrial fibrillation INR 2.0 to 3.0 Valvular heart disease INR 2.0 to 3.0 Tissue heart valves INR 2.0 to 3.0 Mechanical prosthetic valves INR 2.5 to 3.5 Prevention of recurrent ME INR 2.5 to 3.5 Gina Dailey JUNIOR LOAN PROCESSOR LAB BLOOD ORDERABLES Final Result [facility] [address] [place] [address] * (ABNORMAL) CBC and Differential (10/09/2024 10:53 AM EDT) [facility] WBC Count 3.91 3.70 - 10.30 10*3/uL LAB HEMATOLOGY METHOD 10/09/2024 11:55 AM EDT [facility] RBC Count 4.37(L) 4.60 - 6.10 10*6/uL LAB HEMATOLOGY METHOD 10/09/2024 11:55 AM EDT [facility] HGB 14.3 13.7 - 17.5 g/dL LAB HEMATOLOGY METHOD 10/09/2024 11:55 AM EDT [facility] HCT 41.8 40.0 - 51.0 % LAB HEMATOLOGY METHOD 10/09/2024 11:55 AM EDT [facility] Platelet Count 122(L) 155 - 369 10*3/uL LAB HEMATOLOGY METHOD 10/09/2024 11:55 AM EDT [facility] MCV 96 79 - 98 fL LAB HEMATOLOGY METHOD 10/09/2024 11:55 AM EDT [facility] MCH 32.7(H) 26.0 - 32.0 pg LAB HEMATOLOGY METHOD 10/09/2024 11:55 AM EDT [facility] MCHC 34.2 30.7 - 35.5 g/dL LAB HEMATOLOGY METHOD 10/09/2024 11:55 AM EDT [facility] RDW 12.9 11.5 - 14.5 % LAB HEMATOLOGY METHOD 10/09/2024 11:55 AM EDT [facility] MPV 9.6 8.8 - 12.5 fL LAB HEMATOLOGY METHOD 10/09/2024 11:55 AM EDT [facility] nRBC 0.0 <=0.0 per 100 WBCs LAB HEMATOLOGY METHOD 10/09/2024 11:55 AM EDT [facility] Differential Type Automated LAB HEMATOLOGY METHOD 10/09/2024 11:55 AM EDT [facility] Neutrophils % 51 % LAB HEMATOLOGY METHOD 10/09/2024 11:55 AM EDT [facility] Lymphocytes % 26 % LAB HEMATOLOGY METHOD 10/09/2024 11:55 AM EDT [facility] Monocytes % 19 % LAB HEMATOLOGY METHOD 10/09/2024 11:55 AM EDT [facility] Eosinophils % 3 % LAB HEMATOLOGY METHOD 10/09/2024 11:55 AM EDT [facility] Basophils % 1 % LAB HEMATOLOGY METHOD 10/09/2024 11:55 AM EDT [facility] Immature Granulocytes % 0 % LAB HEMATOLOGY METHOD 10/09/2024 11:55 AM EDT [facility] Neutrophils Absolute 1.95 1.60 - 6.10 10*3/uL LAB HEMATOLOGY METHOD 10/09/2024 11:55 AM EDT [facility] Lymphocytes Absolute 1.03(L) 1.20 - 3.90 10*3/uL LAB HEMATOLOGY METHOD 10/09/2024 11:55 AM EDT [facility] Monocytes Absolute 0.76 0.30 - 0.90 10*3/uL LAB HEMATOLOGY METHOD 10/09/2024 11:55 AM EDT [facility] Eosinophils Absolute 0.13 0.00 - 0.50 10*3/uL LAB HEMATOLOGY METHOD 10/09/2024 11:55 AM EDT [facility] Basophils Absolute 0.03 0.00 - 0.10 10*3/uL LAB HEMATOLOGY METHOD 10/09/2024 11:55 AM EDT [facility] Immature Granulocytes Absolute 0.01 0.00 - 0.06 10*3/uL LAB HEMATOLOGY METHOD 10/09/2024 11:55 AM EDT [facility] Blood Venous blood specimen / Unknown Venipuncture / Unknown 10/09/2024 10:53 AM EDT 10/09/2024 10:54 AM EDT Narrative [facility] - 10/09/2024 11:55 AM EDT Therapeutic decision making should be based on absolute values, rather than percentages. [facility] LAB BLOOD ORDERABLES Final Result Performing Organization Address City/[facility]/ZIP Co de Phone Number [facility] [address] [place] [address] * (ABNORMAL) IgG, Plasma (10/09/2024 10:53 AM EDT) IGG 2,143(H) 720 - 1,589 mg/dL 10/09/2024 12:32 PM EDT [facility] Blood Venous blood specimen / Unknown Venipuncture / Unknown 10/09/2024 10:53 AM EDT 10/09/2024 10:54 AM EDT [facility] LAB BLOOD ORDERABLES Final Result Performing Organization Address City/[facility]/ZIP Co de Phone Number [facility] [address] [place] [address] * US Liver Screen (10/09/2024 8:59 AM [...] are based on Ultrasound LI-RADS version 2017. [email or web address] By electronically signing this report, [...] recommendations are based on UltrasoundLI-RADS version 2017. [email or web address] By electronically signing this report, I, the attending physician, attskylarthat I have personally reviewed the images/data for the aboveexamination(s) and agree with the final edited report. Drafted by Martín Tucker DO on 10/09/2024 9:04 AM Final report signed by Rona Corley MD on 10/09/2024 7:27 PM us Gina Dailey JUNIOR LOAN PROCESSOR IMG US PROCEDURES Final Res ult * TSH Reflex FT4 (10/07/2024 11:18 AM EDT) Thyroid Stimulating Hormone, Plasma 0.92 0.40 - 4.20 uIU/mL 10/07/2024 2:00 PM EDT [facility] Blood Venous blood specimen / Unknown Venipuncture / Unknown 10/07/2024 11:18 AM EDT 10/07/2024 1:34 PM EDT us Alem Garber MD LAB BLOOD ORDERABLES Elana l Result [facility] [address] [place] [address] * (ABNORMAL) Vitamin D 25 Hydroxy (10/07/2024 11:18 AM EDT) Vitamin D 25 Hydroxy 11.7(L) 20.0 - 80.0 ng/mL 10/07/2024 2:24 PM EDT [facility] Blood Venous blood specimen / Unknown Venipuncture / Unknown 10/07/2024 11:18 AM EDT 10/07/2024 1:34 PM EDT Narrative [facility] - 10/07/2024 2:24 PM EDT Testing performed on [employer] [facility], standardized against NIST SRM 2972. When testing [...] to 80 ng/mL Possible toxicity: >100 ng/mL Alem Garber MD LAB BLOOD ORDERABLES Leana l Result Performing Organization Address City/[facility]/[place] [address] * Free T4, Plasma (10/07/2024 11:18 AM EDT) Free T4, Plasma 1.0 0.8 - 1.7 ng/dL 10/07/2024 2:00 PM EDT [facility] Blood Venous blood specimen / Unknown Venipuncture / Unknown 10/07/2024 11:18 AM EDT 10/07/2024 1:34 PM EDT Alem Garber MD LAB BLOOD ORDERABLES Leana l Result Performing Organization Address [facility] [place] [address] * Hemoglobin A1c (10/07/2024 11:18 AM EDT) Hemoglobin A1c 5.0 <5.7 % 10/07/2024 4:09 PM EDT [facility] Blood Venous blood specimen / Unknown Venipuncture / Unknown 10/07/2024 11:18 AM EDT 10/07/2024 1:33 PM EDT Narrative [facility] - 10/07/2024 4:09 PM EDT HA1C Interpretive Data: Diagnosis of Diabetes: Diabetic > or = 6.5% Pre-diabetic 5.7 to 6.4% Non-diabetic < or = 5.6% Glycemic Targets for Type I and Type II Diabetics: Non- Adults <7.0% Adults <6.0% Children and Adolescents <7.5% Source: [place] [employer]. Standards of medical care in diabetes,2017. Diabetes Care.2017:40 (suppl 1):S1-S135. Alem Garber MD LAB BLOOD ORDERABLES Leana l Result Performing Organization Address City/[facility]/ZIP Co de Phone Number [facility] [address] [place] [address] * Vitamin B12, Serum (10/07/2024 11:18 AM EDT) Vitamin B12, Serum 559 210 - 1,033 pg/mL 10/07/2024 2:08 PM EDT [facility] Blood Venous blood specimen / Unknown Venipuncture / Unknown 10/07/2024 11:18 AM EDT 10/07/2024 1:34 PM EDT Alem Garber MD LAB BLOOD ORDERABLES Leana l Result Performing Organization Address [facility] Co de Phone Number [facility] [address] [place] [address] * Lipid Profile, Plasma (10/07/2024 11:18 AM EDT) Cholesterol, Plasma 120 <200 mg/dL 10/07/2024 2:00 PM EDT [facility] Comment: Cholesterol Reference Range (age >17 years): Desirable <200 mg/dL Borderline 200 to 239 mg/dL Undesirable >239 mg/dL HDL 59 >=40 mg/dL 10/07/2024 2:00 PM EDT [facility] Comment: HDL Cholesterol Reference Ranges (age >17 years): Female, acceptable > or = 50 mg/dL Male, acceptable > or = 40 mg/dL Triglycerides, Plasma 53 <150 mg/dL 10/07/2024 2:00 PM EDT [facility] Comment: Triglyceride Reference Range (age >17 years): Desirable: <150 mg/dL Borderline high: 150 to 199 mg/dL High: 200 to 499 mg/dL Very high: >499 mg/dL Increased risk of pancreatitis: >1000 mg/dL Cholesterol/HDL Ratio 2 10/07/2024 2:00 PM EDT [facility] LDL, Calculated 49 <100 mg/dL 2:00 PM EDT [facility] Comment: LDL Cholesterol Reference Range (age [...] 12 hours? Yes 10/07/2024 2:00 PM EDT [facility] Blood Venous blood specimen / Unknown Venipuncture / Unknown 10/07/2024 11:18 AM EDT 10/07/2024 1:34 PM EDT Alem Garber MD LAB BLOOD ORDERABLES Leana dooley Result [facility] [address] [place] [address] * (ABNORMAL) Comprehensive Metabolic Panel, Plasma (10/07/2024 11:18 AM EDT) Glucose, Plasma 114(H) 74 - 99 mg/dL 10/07/2024 2:00 PM EDT [facility] BUN, Plasma 6(L) 8 - 23 mg/dL 10/07/2024 2:00 PM EDT [facility] Creatinine, Plasma 0.58(L) 0.70 - 1.20 mg/dL 10/07/2024 2:00 PM EDT [facility] BUN/Creatinine Ratio 10 10/07/2024 2:00 PM EDT [facility] Sodium, Plasma 140 136 - 145 mmol/L 10/07/2024 2:00 PM EDT [facility] Potassium, Plasma 3.4(L) 3.6 - 4.9 mmol/L 10/07/2024 2:00 PM EDT [facility] Chloride, Plasma 105 97 - 107 mmol/L 10/07/2024 2:00 PM EDT [facility] CO2, Plasma 25 22 - 29 mmol/L 10/07/2024 2:00 PM EDT [facility] Anion Gap 10 6 - 16 mmol/L 10/07/2024 2:00 PM EDT [facility] Total Calcium, Plasma 8.9 8.9 - 10.2 mg/dL 10/07/2024 2:00 PM EDT [facility] Total Protein 7.1 6.3 - 7.9 g/dL 10/07/2024 2:00 PM EDT [facility] Albumin, Plasma 3.5 3.5 - 5.2 g/dL 10/07/2024 2:00 PM EDT [facility] AST, Plasma 51(H) 10 - 50 U/L 10/07/2024 2:00 PM EDT [facility] ALT, Plasma 30 10 - 50 U/L 10/07/2024 2:00 PM EDT [facility] Alkaline Phosphatase, Plasma 99 40 - 115 U/L 10/07/2024 2:00 PM EDT [facility] Total Bilirubin, Plasma 1.2(H) 0.2 - 1.1 mg/dL 10/07/2024 2:00 PM EDT [facility] eGFRcr 111.6 mL/min/1.7 3m*2 10/07/2024 2:00 PM EDT [facility] Comment:Reported eGFRcr in m L/min/1.73m2 is based the CKD-EPI 2020 equation that does not use a race coefficient. Blood Venous blood specimen / Unknown Venipuncture / Unknown 10/07/2024 11:18 AM EDT 10/07/2024 1:34 PM EDT us Alem Garber MD LAB BLOOD ORDERABLES Leana l Result [facility] [address] [place] [address] * 1- Year Post-Op: XR Hip (AP [...] signing this report, I, the attending physician, attestthat I have personally reviewed the images/data for the aboveexamination(s) and agree with the final edited report. Drafted by Bart Hinson III, MD on 09/02/2024 11:30 AM Final report signed by Xochitl Whitman MD on 09/02/2024 1:38 PM us Yandel Lewis MD IMG XR PROCEDURES Final R esult * ED HIV 1/2 Antibody/Antigen Screen w/Reflex to HIV 1/2 Differentiation (04/14/2024 7:19 PM EDT) HIV 1 & 2 Antibody/Antigen Screen Non Reactive Non Reactive 04/14/2024 8:43 PM EDT [facility] Comment:Screening for HIV 1 & 2 antibodies, and P24 antigen is NONREACTIVE. No confirmatory testing is required. Blood Venous blood specimen / Unknown Venipuncture / Unknown 04/14/2024 7:19 PM EDT 04/14/2024 7:39 PM EDT us Yeyo Hendricks MD LAB BLOOD ORDERABLES Final Result [facility] [address] [place] [address] * CT Chest Lung Cancer Screening (10/11/2023 12:25 PM EDT) Anatomical Region Laterality Modality Chest Computed Tomogra phy Impressions 10/11/2023 1:28 PM EDT Negative screening examination. Recommendations: LungRADS 2: Benign appearance or behavior - CT Chest Lung Cancer Screening recommended in 12 months. Modifier: None CRITICAL RESULT: No. COMMUNICATION: Per this written report. Drafted by Juan Franco MD on 10/11/2023 1:19 PM Final report signed by Juan Franco MD on 10/11/2023 1:28 PM Narrative 10/11/2023 1:28 PM EDT CLINICAL INDICATION: Lung cancer screening; personal history of tobacco use. TECHNIQUE: Multiple CT helical images were obtained from thoracic inlet through upper abdomen without contrast. A low radiation dose protocol was utilized. Total DLP (Dose-Length Product): 206.42 mGy.cm. Please note: The reported value represents the total of one or more individual components during the CT acquisition on this date and at this time, and as such, the same value may appear in more than one CT report depending on the interpreting/reporting physicians. COMPARISON: None. FINDINGS: Mediastinum and Pleura: No adenopathy. Subcentimeter calcified and noncalcified mediastinal lymph nodes are nonspecific, measure up to 1 cm in AP window lymph node. Coronary Calcium: Yes, moderate. Lungs: Small left lower lobe subpleural nodules, measuring up to 5 mm as well as a 4 mm right lower lobe nodule (series 2 image 62). Biapical paraseptal emphysema. Upper Abdomen: Hepatic cirrhosis with TIPS. Please note that the low dose technique utilized for this examination is optimized for pulmonary nodule evaluation and has limited sensitivity for detection of abdominal abnormalities. Musculoskeletal: Mild degenerative changes of the spine. Procedure Note Juan Franco MD - 10/11/2023 CLINICAL INDICATION: Lung cancer screening; personal history of tobacco use. TECHNIQUE: Multiple CT helical images were obtained from thoracic inlet through upperabdomen without contrast. A low radiation dose protocol was utilized. Total DLP (Dose-Length Product): 206.42 mGy.cm. Please note: The reportedvalue represents the total of one or more individual components during theCT acquisition on this date and at this time, and as such, the same valuemay appear in more than one CT report depending on theinterpreting/reporting physicians. COMPARISON: None. FINDINGS: Mediastinum and Pleura: No adenopathy. Subcentimeter calcified andnoncalcified mediastinal lymph nodes are nonspecific, measure up to 1 cmin AP window lymph node. Coronary Calcium: Yes, moderate. Lungs: Small left lower lobe subpleural nodules, measuring up to 5 mm aswell as a 4 mm right lower lobe nodule (series 2 image 62). Biapicalparaseptal emphysema. Upper Abdomen: Hepatic cirrhosis with TIPS. Please note that the low dosetechnique utilized for this examination is optimized for pulmonary noduleevaluation and has limited sensitivity for detection of abdominalabnormalities. Musculoskeletal: Mild degenerative changes of the spine. IMPRESSION: Negative screening examination. Recommendations: LungRADS 2: Benign appearance or behavior - CT Chest Lung Cancer Screeningrecommended in 12 months. Modifier: None CRITICAL RESULT: No. COMMUNICATION: Per this written report. Drafted by Juan Franco MD on 10/11/2023 1:19 PM Final report signed by Juan Franco MD on 10/11/2023 1:28 PM Alem Garber MD IMG CT PROCEDURES Final R esult * Colonoscopy (06/30/2022 9:55 AM EDT) Anatomical Region Laterality Modality Endoscopy Narrative 06/30/2022 10:11 AM EDT Table formatting from the original result was not included. Impression Overall Impression: Perianal and digital rectal exams were without abnormalities. One 6 mm sessile polyp in the sigmoid colon; completely removed en bloc by cold snare and retrieved specimen One 3 mm sessile polyp in the transverse colon; performed complete removal by cold forceps biopsy Three sessile polyps measuring from 2 mm up to 4 mm in the descending colon; performed complete removal by cold forceps biopsy Recommendation Await pathology results Continue with current medication Follow up with PCP Follow up with Referring Provider Repeat colonoscopy in 3 years Come to ED with any signs of pot polypectomy bleeding Discussed with patient Indication Cirrhosis of liver without ascites, unspecified hepatic cirrhosis type (CMS/HCC) Melena Hx of polyps Medications See anesthesia record for anesthesia administered medications. Staff Staff Role Fabrizio Pressley MD Proceduralist Lilly Patel RN Endo Nurse Dudley Love No role selected Anne Elias MD Anesthesiologist Quang Marti, MEGAN, DNP FISHING ROD ASSEMBLER, No role selected Sugar Lorenz RN Endo Nurse Unknown [id number] 1 No role selected Preprocedure A history and physical has been performed, and patient medication allergies have been reviewed. The patient's tolerance of previous anesthesia has been reviewed. The risks and benefits of the procedure and the sedation options and risks were discussed with the patient. All questions were answered and informed consent obtained. Details of the Procedure The patient underwent monitored anesthesia care, which was administered by an anesthesia professional. The patient's blood pressure, heart rate, level of consciousness, respirations and oxygen were monitored throughout the procedure. A digital rectal exam was performed. A perianal exam was performed. The scope was introduced through the anus and advanced to the cecum. Retroflexion was performed in the rectum. The quality of bowel preparation was evaluated using the [place] Bowel Preparation Scale with scores of: right colon = 2, transverse colon = 2, left colon = 2. The total BBPS score was 6. Bowel prep was adequate. The patient's estimated blood loss was minimal (<5 mL). The procedure was not difficult. The patient tolerated the procedure well. There were no apparent complications. Attestation I personally performed the entire procedure Events Procedure Events Event Event Time ENDO SCOPE IN TIME 06/30/2022 9:21 AM ENDO SCOPE OUT TIME 06/30/2022 9:25 AM ENDO SCOPE IN TIME 06/30/2022 9:27 AM ENDO CECUM REACHED 06/30/2022 9:36 AM ENDO SCOPE OUT TIME 06/30/2022 9:53 AM Specimens ID Type Source Tests Collected by Time A : descending colon polyp Tissue Colon SURGICAL PATHOLOGY EXAM Fabrizio Pressley MD 06/30/2022 0930 B : transverse colon polyp Tissue Colon SURGICAL PATHOLOGY EXAM Fabrizio Pressley MD 06/30/2022 0941 C : sigmoid colon polyp Tissue Colon SURGICAL PATHOLOGY EXAM Fabrizio Pressley MD 06/30/2022 0951 Findings Perianal and digital rectal exams were without abnormalities. One 6 mm sessile polyp in the sigmoid colon; completely removed en bloc by cold snare and retrieved specimen One 3 mm sessile polyp in the transverse colon; performed complete removal by cold forceps biopsy Three sessile polyps measuring from 2 mm up to 4 mm in the descending colon; performed complete removal by cold forceps biopsy Dayanara Oconnor APRN, DNP GI PROCEDURE ORDERABL ES Final Result * Hepatitis C Quantitative, RNA by PCR (12/01/2021 2:07 PM EDT) Hepatitis C Virus (HCV) Quantitative Interpretation Not Detected Not Detected . 12/05/2021 4:37 AM EDT [facility] Hepatitis C Virus (HCV) Quantitative Viral Load Log Result <1.08 <1.08 log10 IU/mL 12/05/2021 4:37 AM EDT [facility] Hepatitis C Virus (HCV) Quantitative IU/mL Result <12 <12 IU/mL 12/05/2021 4:37 AM EDT [facility] Blood Venous blood specimen / Unknown Venipuncture / Unknown 12/01/2021 2:07 PM EDT 12/01/2021 2:07 PM EDT [facility] - 12/05/2021 4:37 AM EDT The Valles M2000 HCV test is a Real Time in vitro nucleic acid amplification test for the quantitation of Hepatitis C Viral (HCV) RNA in human serum in HCV-infected individuals. It is intended for use as an aid in the management of HCV-infected individuals undergoing anti-viral therapy. The dynamic range for this test is log10 = 1.08 to 8.00 and/or 12 to 100,000,000 IU/mL. The limit of detection (LOD) for this assay is 12 IU/mL and the limit of quantitation (LOQ) is 12 IU/mL. This assay is FDA approved for clinical use. us Dayanara Yael Oconnor JUNIOR LOAN PROCESSOR, DNP LAB BLOOD ORDERABLES Final Result [facility] [address] [place] [address] from Last 3 Months or Most Recently Relevant to Health Maintenance Insurance [employer] Advance Directives * Full Code (Latest Code Status on File) Date Activated Date Inactivated Comments 03/07/2023 7:18 AM 03/08/2023 5:55 PM Question Answer Comments Patient has decision-making capacity? Yes * Full Code Date Activated Date Inactivated Comments 10/18/2022 8:18 AM 10/19/2022 7:44 PM Question Answer Comments Patient has decision-making capacity? Yes * Full Code Date Activated Date Inactivated Comments 06/21/2021 8:21 PM 06/26/2021 5:17 PM Question Answer Comments Patient has decision-making capacity? Yes Care Teams Cable Operator Relationship Specialty Start Date End Date Alem Garber MD [address] [place] [address] [address] [place] [address] PCP - General Family Medicine 01/20/22
--- OUTSIDE RECORDS SUMMARY | 2024-10-13 16:38 | XMS_ITS | Encounter Summary ---
Author Organization Healthcare Address [address] [place] [address] Care Team Providers Care Mems Device Scientist Name Role Phone Alem Garber MD Primary Care Provider [phone] Encounter Details Date Type Department Care Team (Latest Contact Info) Description 10/07/2024 Travel Social History Tobacco Use Types Packs/Day [...] any time in the past [address] [facility], were you homeless or living in a long-term (including now)? No 10/07/2024 [facility] Utilities Answer Date Recorded In the past [...] drink first t santosh in the morning (EYE-DIRECT RESPONSE CONSULTANT) to steady your nerves or to get [...] at all 10/07/2024 10:29 AM EDT Emir turner Peyton I Feeling tired or having lev le energy Not at all 10/07/2024 10:29 AM EDT Milly Aguilar I Poor appetite or overeating Not at all 10/07/2024 10 :29 AM EDT Arden Aguilaron I Feeling bad about yourself - or that you are a failure or have let yourself or your family down Not at all 10/07/2024 10:29 AM EDT Milly Aguilar I Trouble concentrating on things, such as reading the newspaper or watching television Not at all 10/07/2024 10:29 AM EDT Milly Aguilar I Moving or speaking so slowly that [...] -9 Score 0 10/07/2024 10:29 AM EDT Milly Aguilar I * Calculated C-SSRS Risk Score (Lifetime/Recent) [...] 1 Month) No 025 10:28 AM EDT Milly Aguilar I 2. Non-Specific Active Suici livan Thoughts (Past 1 Month) No 10/07/2024 10:28 AM EDT Robbi Aguilaron I 6. Suicidal Behavior (Lifetime) No 10:28 AM EDT Milly Aguilar I documented as of this encounter Plan of Treatment Upcoming Encounters Date Type Department Care Team (Late st Contact Info) Description 02/06/2025 1:00 PM EST Office Visit [facility] [address] [place] [phone] Alem Garber MD [address] [facility] [address] [place] [phone] 04/08/2025 3:10 PM EST Office Visit [facility] [address] [place] [phone] Gina Dailey, MIRACLE [address] [place] [address] documented as of this encounter [...] documented as of this encounter Care Teams Mems Device Scientist Relationship Specialty Start Date End Date Alem Garber MD [address] [place] [phone] PCP - General Family Medicine 01/20/22 documented as of this encounter
--- NOTE | 2024-10-13 16:39 | CT_ITS ---
PROCEDURE INFORMATION: Exam: CTA Chest With Contrast Exam date and time: 10/13/2024 5:31 PM Age: 59 years old Clinical indication: Shortness of breath TECHNIQUE: Imaging protocol: Computed tomographic angiography of the chest with contrast. Exam focused on the arteries. 3D rendering (Not supervised by radiologist): MIP and/or 3D reconstructed images were created by the technologist. Radiation optimization: All CT scans at this facility use at least one of these dose optimization techniques: automated exposure control; mA and/or kV adjustment per patient size (includes targeted exams where dose is matched to clinical indication); or iterative reconstruction. Contrast material: ISOVUE; Contrast volume: 80 ml; Contrast route: INTRAVENOUS (IV); COMPARISON: No relevant prior studies available. FINDINGS: Pulmonary arteries: Normal. No pulmonary emboli. Aorta: Unremarkable. No aortic aneurysm. No aortic dissection. Lungs: Unremarkable. No consolidation. No masses. Pleural spaces: Unremarkable. No pneumothorax. No pleural effusion. Heart: Unremarkable. No cardiomegaly. No pericardial effusion. Coronary arteries: Moderate coronary calcium. Lymph nodes: Unremarkable. No enlarged lymph nodes. Bones/joints: Unremarkable. No acute fracture. Soft tissues: Cirrhosis, status post TIPS procedure.. IMPRESSION: 1. No evidence of pulmonary embolus. 2. Moderate coronary calcium. 3. Cirrhosis, status post TIPS procedure..
--- OUTSIDE RECORDS SUMMARY | 2024-10-13 16:39 | XMS_ITS | Encounter Summary ---
Author Organization Healthcare Address [address] [place] [address] Care Team Providers Care Certified Hearing Instrument Dispenser Name Role Phone Alem Garber MD Primary Care Provider [phone] Encounter Details Date Type Department Care Team (Latest Contact Info) Description 09/02/2024 Travel Social History Tobacco Use Types Packs/Day [...] place to sleep or slept in a longterm (including now)? No 09/19/2023 PHQ-9 Answer Date [...] drink first t santosh in the morning (EYE-ADAPTED PHYSICAL EDUCATION SPECIALIST) to steady your nerves or to get rid of a hangover? 0 03/19/2023 CAGE Questionnaire Score 0 024 Utilities Answer Date Recorded In the past 12 months has th e [employer], [employer], oil, or water [place] threatened to shut off services in your home? No 09/19/2023 PHQ-2A Answer Date Recorded Depression Risk 0 02/16/2022 Sex and Gender Information Value Date Recorded Sex Assigned at Male 06/25/2021 6:41 AM EDT Legal Sex Male 8:11 PM EDT Gender Identity Male 06/25/2021 6:41 AM EDT Sexual Orientation Not on file documented as of this encounter Plan of Treatment Upcoming Encounters Date Type Department Care Team (Late st Contact Info) Description 02/06/2025 1:00 PM EST Office Visit [facility] [address] [place] [address] Alem Garber MD [address] [facility] [address] [place] [phone] 04/08/2025 3:10 PM EST Office Visit [facility] [address] [place] [address] Gina Dailey, BINDING MACHINE OPERATOR [address] [place] [phone] documented as of this encounter Visit Diagnoses [...] documented as of this encounter Care Teams Certified Hearing Instrument Dispenser Relationship Specialty Start Date End Date Alem Garber MD [address] [place] [address] PCP - General Family Medicine 01/20/22 documented as of this encounter
--- NOTE | 2024-10-13 16:41 | ED_ITS ---
<Statement entered by Ester Erickson DO - 10/13/24 19:11> I was consulted by the VIMAL, and we discussed the complexity of problems being addressed. I approve the treatment and management plan for this patient's care in the emergency department, thus performing a substantial portion of the medical decision making. Ester Erickson DO Discharge Plan Disposition Patient Disposition: Home, Self-Care Prescriptions Prescriptions: New prednisone 20 mg tablet 20 mg PO BID 7 Days Qty: 14 0RF doxycycline hyclate 100 mg tablet 100 mg PO BID 10 Days Qty: 20 0RF No Action primidone 50 mg tablet PO Qty: 15 Patient Comments: TAKE 1/2 TABLET BY MOUTH EVERY DAY bupropion HCl 150 mg tablet sustained-release 12 hr PO Qty: 60 Patient Comments: TAKE 1 TABLET DAILY FOR 1 WEEK, THEN TAKE 1 TABLET TWICE DAILY. fluticasone propionate 50 mcg/actuation spray,suspension INTRANASAL alprazolam 0.5 mg tablet 0.5 mg PO DAILY Qty: 30 1RF gabapentin 100 mg capsule 100 mg PO BID Qty: 60 1RF albuterol sulfate 90 mcg/actuation HFA aerosol inhaler 2 puff INHALATION BID PRN (Reason: shortness of breath or wheezing) Qty: 18 6RF aspirin 81 mg tablet,delayed release (DR/EC) See Rx Instructions .ROUTE .COMPLEX Qty: 30 8RF Dose Instruction: TAKE 1 TABLET BY MOUTH EVERY DAY Rx Instructions: TAKE 1 TABLET BY MOUTH EVERY DAY atorvastatin 40 mg tablet See Rx Instructions .ROUTE .COMPLEX Qty: 90 0RF Dose Instruction: TAKE 1 TABLET BY MOUTH EVERY DAY Rx Instructions: TAKE 1 TABLET BY MOUTH EVERY DAY lisinopril-hydrochlorothiazide 10-12.5 mg tablet See Rx Instructions .ROUTE .COMPLEX Qty: 90 0RF Dose Instruction: TAKE 1 TABLET BY MOUTH EVERY DAY Rx Instructions: TAKE 1 TABLET BY MOUTH EVERY DAY Referrals Follow up/Referrals: Provider,Referral, [Primary Care Provider, Medical] - See instructions Apoorva Murillo MD [Physician, Pulmonology] - See instructions Activity Restrictions/Add. Instructions Additional Instructions/Restrictions: Take medications as directed. Use inhaler as needed. It would be best if PCP could write you for nebulizer for use at home. Return to ED if any worsening signs symptoms occur. Clinical Impressions Clinical Impression: Acute exacerbation of chronic obstructive airways disease Instructions Patient Instructions: Chronic Obstructive Pulmonary Disease Print Language Print Language: Nepalese Discharge ED Provider: Ester Erickson HPI <Domitila Vick (ED), [employer] - Last Filed: 10/13/24 18:51> General Chief Complaint: Shortness of Breath/Dyspnea Stated Complaint: SOA x4days Time Seen by Provider: 10/13/24 16:32 History of Present Illness HPI narrative: 59-year-old male presents to the ED for complaint of shortness of air for the last 4 days. Patient states that he has had difficulty breathing, wheezing, cough that has been worsening. He states that he usually gets to but figured that he would come here. He states that he used his inhaler and has been using too much of his albuterol. He says it did help some. Patient is a smoker half a pack per day. Patient started at 92% on room air he is increased to 97% on room air. Patient does have bilateral lower extremity swelling. This has been going on for a while. He tells me he has a cirrhosis patient. Patient states he is on lisinopril HCTZ, atorvastatin, Flexeril, gabapentin, oxycodone. He has no heart or lung surgeries in the past he has had a TIPS procedure and he says he has a hernia. Related Data Home Medications ?Medication ?Instructions ?Recorded ?Confirmed bupropion HCl 150 mg tablet,12 hr PO #60 ea 12/24/18 0 06/23/19 sustained-release primidone 50 mg tablet PO #15 tabs 12/24/18 0 fluticasone propionate 50 intranasal 02/18/19 06/23/19 mcg/actuation nasal spray,suspension Previous Rx's ?Medication ?Instructions ?Recorded albuterol sulfate 90 mcg/actuation 2 puff inhalation B ID PRN 05/12/19 aerosol inhaler shortness of breath or wheez ing #18 grams alprazolam 0.5 mg tablet 0.5 mg PO DAILY #30 tabs gabapentin 100 mg capsule 100 mg PO BID #60 caps 06/03 aspirin 81 mg tablet,delayed See Rx Instructions .Rout e 02/23/20 release .COMPLEX #30 tabs atorvastatin 40 mg tablet See Rx Instructions .Route 0 06/24/20 .COMPLEX #90 tabs lisinopril 10 See Rx Instructions .Route 1 02/17/20 mg-hydrochlorothiazide 12.5 mg .COMPLEX #90 tabs tablet doxycycline hyclate 100 mg tablet 100 mg PO BID 10 day s #20 tabs 10/13/24 prednisone 20 mg tablet 20 mg PO BID 7 days #14 tabs 10/13/24 Allergies Allergy/AdvReac Type Severity Reaction Status Date / Time Penicillins Allergy Mild I-HIVES Verified 06/23/19 09:24 [facility] <Domitila Vick (ED), [employer] - Last Filed: 10/13/24 18:51> PFS Disclaimer: The information contained in this section may have been updated after the patient was seen, as this information can be updated by other users. Social History Smoking Status: Current every day smoker tobacco type: cigarettes packs per day: 1 alcohol intake: current alcohol intake frequency: 0-2 drinks per day substance use type: denies use current occupational status: disabled Travel in the last 8 weeks?: None household members: spouse housing: house Have you lived/traveled outside [place] in past 30 days?: No Contact w/someone who lives/traveled outside US past 30 days?: No Exposure to someone with infectious disease in past 14 days?: No Do you have a fever (greater than 100.4 F or 38 C)?: No Have you tested positive for COVID-19?: No Exposed to someone with COVID-19 in past 14 days?: No Do you have a sore throat?: No Do you have a cough?: No Do you have any weakness?: No Do you have any diarrhea?: No Are you experiencing any unusual bleeding?: No Do you have any muscle aches/pain?: No Do you have any abdominal pain?: No Are you experiencing loss of taste or smell?: No Other Medical History Have you received the Flu Vaccine for this season: Yes Have you received the Pneumonia Vaccine: No <Domitila Vick (ED), [employer] - Last Filed: 10/13/24 18:51> ROS Obtained: Yes Systems reviewed as appropriate & no additional complaints except as documented Constitutional Constitutional: Reports as per HPI Physical Exam <Domitila Vick (ED), [employer] - Last Filed: 10/13/24 18:51> General General appearance: alert and in distress Head Head exam: normocephalic Eye Eye exam: Present PERRL and EOMI ENT ENT exam: Present normal oropharynx and mucous membranes moist Neck Neck exam: Present full ROM and trachea midline Respiratory Respiratory exam: Present wheezes Cardiovascular Cardiovascular exam: Present regular rate, normal rhythm, normal heart sounds, +S1 and +S2 Abdominal Exam Abdominal exam: Present soft and normal bowel sounds Extremities Exam Extremities exam: Present full ROM and normal capillary refill Neurological Exam Neurological exam: Present alert, oriented X3 and normal gait Skin Skin exam: Present warm and dry HEART Score <Domitila Vick (ED), [employer] - Last Filed: 10/13/24 18:51> HEART Score HEART Score assessment performed?: Yes History (anamnesis): Slightly suspicious ECG: Normal Age: 45-65 years Risk factors: 3 or more risk factors Troponin: </= normal limit HEART Score: 3 <Ester Erickson DO - Last Filed: 10/13/24 19:12> HEART Score HEART Score: 3 Critical Care <Domitilaluigi Vick (ED), [employer] - Last Filed: 10/13/24 18:51> Critical Care Time Critical Care Time: No Medical Decision Making <[facility] (ED), [employer] - Last Filed: 10/13/24 18:51> Aj Inquiry Pt receiving controlled substance: No Aj was queried for this patient: No Vital Signs Vital Signs: 10/13/24 16:31 10/13/24 16:43 10/13/24 17:00 Temperature 99.6 F Temperature Source Oral Pulse Rate 89 Pulse Rate [Apical] 96 H Respiratory Rate 24 20 Blood Pressure 155/99 H Blood Pressure [Right Arm] 155/99 H Blood Pressure Mean [Right Arm] 117 Blood Pressure Source Blood Pressure Source [Right Arm] Automatic Cuff Blood Pressure Position Blood Pressure Position [Right Arm] Sitting 02 Sat by Pulse Oximetry 96 93 L 93 L Oxygen Delivery Method Room Air Room Air Room Air 10/13/24 17:01 10/13/24 17:36 10/13/24 17:54 Temperature Temperature Source Pulse Rate 92 H 95 H Pulse Rate [Apical] Respiratory Rate 20 27 H 20 Blood Pressure 156/95 H 148/84 H 148/84 H Blood Pressure [Right Arm] Blood Pressure Mean [Right Arm] Blood Pressure Source Automatic Cuff Blood Pressure Source [Right Arm] Blood Pressure Position Sitting Blood Pressure Position [Right Arm] 02 Sat by Pulse Oximetry 97 95 Oxygen Delivery Method Room Air 10/13/24 18:00 10/13/24 18:30 10/13/24 18:48 Temperature 98.4 F Temperature Source Oral Pulse Rate 96 H 94 H Pulse Rate [Apical] Respiratory Rate 27 H 22 18 Blood Pressure 142/81 H 138/72 138/72 Blood Pressure [Right Arm] Blood Pressure Mean [Right Arm] Blood Pressure Source Automatic Cuff Blood Pressure Source [Right Arm] Blood Pressure Position Sitting Blood Pressure Position [Right Arm] 02 Sat by Pulse Oximetry 96 Oxygen Delivery Method Room Air Lab Data Labs: Lab Results 10/13/24 16:38: WBC 6.3, RBC 4.43 L, Hgb 14.8, Hct 42.4, MCV 95.7 H, MCH 33.4 H, MCHC 34.9, RDW 12.4, Plt Count 134 L, MPV 9.4, Neut % (Auto) 63.8, Lymph % (Auto) 22.1, [place] % (Auto) 11.2 H, Eos % (Auto) 2.1, Baso % (Auto) 0.5, Neut # (Auto) 4.0, Lymph # (Auto) 1.4, [place] # (Auto) 0.7, Eos # (Auto) 0.1, Baso # (Auto) 0.0, VBG pH 7.36, VBG pCO2 50.3, VBG pO2 43.5 H, VBG HCO3 27.6, VBG Total CO2 29.1 H, VBG O2 Saturation 75.9 H, VBG Base Excess 2.1, VBG Lactic Acid 1.7, Sodium 139, Potassium 4.0, Chloride 105, Carbon Dioxide 30, Anion Gap 8.0, BUN 6 L, Creatinine 0.60 L, Estimated Creat Clear 206, Estimated GFR 137, Est GFR ( Amer) 166, Glucose 102 H, Calcium 9.3, Magnesium 1.7, Total Bilirubin 1.7 H, AST 59, ALT 36, Alkaline Phosphatase 94, Troponin I < 0.01, NT-Pro-B Natriuret Pep 54.6, Total Protein 8.2, Albumin 4.0, Globulin 4.2 H, A lbumin/Globulin Ratio 1.0 L, Lipase 41, HCV Ab MARIE w/Rflx PCR Qn Reactive, HIV Ag/Ab Combo Qual Negative 10/13/24 16:38 10/13/24 16:38 Response Orders (Tests/Meds): ED MEDICATIONS Discontinued Medications Generic Name Dose Route Start Last Admin Trade Name Chato PRN Reason Stop Dose Admin Albuterol/Ipratropium 9 ml 10/13/24 16:39 10/13/24 16:44 Ipratropium/Albuterol 3 Ml Neb IH 10/13/24 16:40 9 ml ONCE ONE Administration Magnesium Sulfate 2 gm in 50 mls @ 50 mls/hr 10/13/24 16:39 10/13/24 17:56 Magnesium Sulfate 2gm/50ml Premix IV 10/13/24 17:38 Infused ONCE ONE Infusion Iopamidol 80 ml 10/13/24 17:27 10/13/24 17:29 Iopamidol-370 (76%);100ml Bottle IV 10/13/24 17:28 80 ml ONCE ONE Administration Methylprednisolone Sodium Succinate 125 mg 10/13/24 16:45 10/13/24 16:48 Methylprednisolone Sod Succ 125mg Vial IV 10/13/24 16:46 125 mg ONCE ONE Administration Sodium Chloride 50 ml 10/13/24 17:27 10/13/24 17:28 0.9 % Sodium Chloride 50 Ml Vial IV 10/13/24 17:28 50 ml ONCE ONE Administration Sodium Chloride 10 ml 10/13/24 17:27 10/13/24 17:29 Sodium Chloride 0.9% 10ml Syr (Rad Only) IV 10/13/24 17:28 10 ml ONCE ONE Administration ORDERS Category Date Time Status CTA Chest [CT angio chest PE protocol] Stat Cat Scan 10/13/24 16:39 Completed BNP [NT Pro Brain Natriuretic Pep.] Stat Lab 10/13/24 16:38 Completed CBC [Complete Blood Count Auto Diff] Stat Lab 10/13/24 16:38 Completed Comprehensive Metabolic Panel Stat Lab 10/13/24 16:38 Completed HCV RNA PCR, Quant Stat Lab 10/13/24 16:38 Received HIV Combo Stat Lab 10/13/24 16:38 Completed Hepatitis C Ab Qual. W/ RFX Stat Lab 10/13/24 16:38 Completed Lipase Stat Lab 10/13/24 16:38 Completed Magnesium Stat Lab 10/13/24 16:38 Completed Rapid PCR Covid and Flu A/B Stat Lab 10/13/24 16:48 Received Trop I [Troponin I] Stat Lab 10/13/24 16:38 Completed Blood Culture Stat Micro 10/13/24 16:58 Received Venous Blood Gas Stat RT 10/13/24 16:38 Completed MDM Narrative Medical Decision Narrative: patient is a 59-year-old male presenting to the emergency department for evaluation of shortness of air for 3 to 4 days. Patient is hemodynamically stable and nontoxic-appearing upon arrival, afebrile. Differential diagnosis includes COPD exacerbation, pneumonia, CHF, PE, among others. Workup will be conducted with hematologic labs, specific imaging. Initial inventions include mag, Solu-Medrol, DuoNebs. Initial workup reviewed by ok hematologic labs are nonactionable. Patient CT scan showed no evidence of PE. The patient feels much improved after DuoNebs, magnesium, Solu-Medrol. Patient to follow-up with his PCP and material stress tester. If he has no improvement please return to the ED. He likely needs to get a nebulizer machine for home which his PCP can write for him. Patient safe for discharge home. <Ester Erickson, DO - Last Filed: 10/13/24 19:12> Vital Signs Vital Signs: 10/13/24 16:31 10/13/24 16:43 10/13/24 17:00 Temperature 99.6 F Temperature Source Oral Pulse Rate 89 Pulse Rate [Apical] 96 H Respiratory Rate 24 20 Blood Pressure 155/99 H Blood Pressure [Right Arm] 155/99 H Blood Pressure Mean [Right Arm] 117 Blood Pressure Source Blood Pressure Source [Right Arm] Automatic Cuff Blood Pressure Position Blood Pressure Position [Right Arm] Sitting 02 Sat by Pulse Oximetry 96 93 L 93 L Oxygen Delivery Method Room Air Room Air Room Air 10/13/24 17:01 10/13/24 17:36 10/13/24 17:54 Temperature Temperature Source Pulse Rate 92 H 95 H Pulse Rate [Apical] Respiratory Rate 20 27 H 20 Blood Pressure 156/95 H 148/84 H 148/84 H Blood Pressure [Right Arm] Blood Pressure Mean [Right Arm] Blood Pressure Source Automatic Cuff Blood Pressure Source [Right Arm] Blood Pressure Position Sitting Blood Pressure Position [Right Arm] 02 Sat by Pulse Oximetry 97 95 Oxygen Delivery Method Room Air 10/13/24 18:00 10/13/24 18:30 10/13/24 18:48 Temperature 98.4 F Temperature Source Oral Pulse Rate 96 H 94 H Pulse Rate [Apical] Respiratory Rate 27 H 22 18 Blood Pressure 142/81 H 138/72 138/72 Blood Pressure [Right Arm] Blood Pressure Mean [Right Arm] Blood Pressure Source Automatic Cuff Blood Pressure Source [Right Arm] Blood Pressure Position Sitting Blood Pressure Position [Right Arm] 02 Sat by Pulse Oximetry 96 Oxygen Delivery Method Room Air Lab Data Labs: Lab Results 10/13/24 16:38: WBC 6.3, RBC 4.43 L, Hgb 14.8, Hct 42.4, MCV 95.7 H, MCH 33.4 H, MCHC 34.9, RDW 12.4, Plt Count 134 L, MPV 9.4, Neut % (Auto) 63.8, Lymph % (Auto) 22.1, [place] % (Auto) 11.2 H, Eos % (Auto) 2.1, Baso % (Auto) 0.5, Neut # (Auto) 4.0, Lymph # (Auto) 1.4, [place] # (Auto) 0.7, Eos # (Auto) 0.1, Baso # (Auto) 0.0, VBG pH 7.36, VBG pCO2 50.3, VBG pO2 43.5 H, VBG HCO3 27.6, VBG Total CO2 29.1 H, VBG O2 Saturation 75.9 H, VBG Base Excess 2.1, VBG Lactic Acid 1.7, Sodium 139, Potassium 4.0, Chloride 105, Carbon Dioxide 30, Anion Gap 8.0, BUN 6 L, Creatinine 0.60 L, Estimated Creat Clear 206, Estimated GFR 137, Est GFR ( Amer) 166, Glucose 102 H, Calcium 9.3, Magnesium 1.7, Total Bilirubin 1.7 H, AST 59, ALT 36, Alkaline Phosphatase 94, Troponin I < 0.01, NT-Pro-B Natriuret Pep 54.6, Total Protein 8.2, Albumin 4.0, Globulin 4.2 H, A lbumin/Globulin Ratio 1.0 L, Lipase 41, HCV Ab MARIE w/Rflx PCR Qn Reactive, HIV Ag/Ab Combo Qual Negative Response Orders (Tests/Meds): ED MEDICATIONS Discontinued Medications Generic Name Dose Route Start Last Admin Trade Name Freq PRN Reason Stop Dose Admin Albuterol/Ipratropium 9 ml 10/13/24 16:39 10/13/24 16:44 Ipratropium/Albuterol 3 Ml Neb IH 10/13/24 16:40 9 ml ONCE ONE Administration Magnesium Sulfate 2 gm in 50 mls @ 50 mls/hr 10/13/24 16:39 10/13/24 17:56 Magnesium Sulfate 2gm/50ml Premix IV 10/13/24 17:38 Infused ONCE ONE Infusion Iopamidol 80 ml 10/13/24 17:27 10/13/24 17:29 Iopamidol-370 (76%);100ml Bottle IV 10/13/24 17:28 80 ml ONCE ONE Administration Methylprednisolone Sodium Succinate 125 mg 10/13/24 16:45 10/13/24 16:48 Methylprednisolone Sod Succ 125mg Vial IV 10/13/24 16:46 125 mg ONCE ONE Administration Sodium Chloride 50 ml 10/13/24 17:27 10/13/24 17:28 0.9 % Sodium Chloride 50 Ml Vial IV 10/13/24 17:28 50 ml ONCE ONE Administration Sodium Chloride 10 ml 10/13/24 17:27 10/13/24 17:29 Sodium Chloride 0.9% 10ml Syr (Rad Only) IV 10/13/24 17:28 10 ml ONCE ONE Administration ORDERS Category Date Time Status CTA Chest [CT angio chest PE protocol] Stat Cat Scan 10/13/24 16:39 Completed BNP [NT Pro Brain Natriuretic Pep.] Stat Lab 10/13/24 16:38 Completed CBC [Complete Blood Count Auto Diff] Stat Lab 10/13/24 16:38 Completed Comprehensive Metabolic Panel Stat Lab 10/13/24 16:38 Completed HCV RNA PCR, Quant Stat Lab 10/13/24 16:38 Received HIV Combo Stat Lab 10/13/24 16:38 Completed Hepatitis C Ab Qual. W/ RFX Stat Lab 10/13/24 16:38 Completed Lipase Stat Lab 10/13/24 16:38 Completed Magnesium Stat Lab 10/13/24 16:38 Completed Rapid PCR Covid and Flu A/B Stat Lab 10/13/24 16:48 Received Trop I [Troponin I] Stat Lab 10/13/24 16:38 Completed Blood Culture Stat Micro 10/13/24 16:58 Received Venous Blood Gas Stat RT 10/13/24 16:38 Completed MDM Narrative Medical Decision Narrative: patient is a 59-year-old male presenting to the emergency department for evaluation of shortness of air for 3 to 4 days. Patient is hemodynamically stable and nontoxic-appearing upon arrival, afebrile. Differential diagnosis includes COPD exacerbation, pneumonia, CHF, PE, among others. Workup will be conducted with hematologic labs, specific imaging. Initial inventions include mag, Solu-Medrol, DuoNebs. KG was reviewed and interpreted by myself and showed normal sinus rhythm at [address] or T wave changes concerning for ischemia Initial workup reviewed by me hematologic labs are nonactionable. Patient CT scan showed no evidence of PE. The patient feels much improved after DuoNebs, magnesium, Solu-Medrol. Patient to follow-up with his PCP and material stress tester. If he has no improvement please return to the ED. He likely needs to get a nebulizer machine for home which his PCP can write for him. Patient safe for discharge home.
[2024-10-13] MEDS: IPRATROPIUM/ALBUTEROL 3 ML NEB 9 ML IH (16:44)
[2024-10-13] MEDS: MAGNESIUM SULFATE IN WATER 2 GM/50 ML PIGGYBACK IV (16:45)
[2024-10-13] MEDS: METHYLPREDNISOLONE SOD SUCC 125MG VIAL 125 MG IV (16:48)
[2024-10-13 16:52] LABS: Hematocrit 42.4 % (42.0-52.0); Hemoglobin 14.8 g/dL (14.1-18.0); Immature Granulocytes % 0.3 %; Mean Corpuscular HGB Conc 34.9 g/dL (31.8-35.4); Mean Corpuscular Hemoglobin 33.4 pg (27.0-31.2); Mean Corpuscular Volume 95.7 fl (80-94); Nucleated Red Blood Cells % 0 %; Platelet Count 134 K/mm3 (142-424); Red Blood Count 4.43 M/mm3 (4.60-6.20); Red Cell Distribution Width-SD 44.9 fL; White Blood Count 6.3 K/mm3 (4.8-10.8)
[2024-10-13 16:55] LABS: Lactate Venous 1.7 mmol/L (0.4-2.0); VBG HCO3 27.6 mmol/L (23-30); VBG PCO2 50.3 mmol/L (35-51); VBG PH 7.36 mmol/L (7.31-7.41); VBG PO2 43.5 mmol/L (28-40)
[2024-10-13 17:01] LABS: Coronavirus 19, PCR Not Detected (NotDetected); Influenza A, PCR Not Detected (NotDetected); Influenza B, PCR Not Detected (NotDetected)
[2024-10-13 17:06] LABS: Alanine Aminotransferase 36 U/L (12-78); Albumin Level 4.0 g/dl (3.5-5.0); Albumin/Globulin Ratio 1.0 (1.1-1.8); Alkaline Phosphatase 94 U/L (38-126); Anion Gap 8.0 mEq/L (5-15); Aspartate Amino Transferase 59 U/L (17-59); Bilirubin,Total 1.7 mg/dl (0.2-1.3); Blood Urea Nitrogen 6 mg/dl (9-20); Calcium 9.3 mg/dl (8.4-10.2); Carbon Dioxide 30 mmol/L (22.0-30.0); Chloride 105 mmol/L (98-107); Creatinine Clearance Estimated 206 mL/min (50-200); Creatinine,Serum 0.60 mg/dl (0.66-1.25); Estimated Glomerular Filt Rate 137 ml/min (>60); GFR (African American) 166 ML/MIN (>60); Globulin 4.2 g/dL (1.3-3.2); Glucose 102 mg/dl (74-100); Lipase 41 U/L (23-300); Magnesium 1.7 mg/dl (1.6-2.3); Potassium 4.0 mmoL/L (3.5-5.1); Sodium 139 mmol/L (136-145); Total Protein,Serum 8.2 g/dl (6.3-8.2)
[2024-10-13 17:15] LABS: NT Pro Brain Natriuretic Pep. 54.6 pg/mL (0-125)
[2024-10-13 17:22] LABS: Troponin I < 0.01 ng/ml (0.00-0.034)
[2024-10-13] MEDS: 0.9 % SODIUM CHLORIDE 50 ML VIAL IV (17:28)
[2024-10-13] MEDS: IOPAMIDOL-370 (76%);100ML BOTTLE 80 ML IV (17:29)
[2024-10-13] MEDS: SODIUM CHLORIDE 0.9% 10ML SYR (RAD ONLY) 10 ML IV (17:29)
--- NOTE | 2024-10-13 17:29 | PC.NURSE ---
pt going to radiology.
--- NOTE | 2024-10-13 17:33 | PC.NURSE ---
pt returned to room at this time.
[2024-10-13 18:04] LABS: Hepatitis C Ab Qual. W/ RFX REACTIVE (Negative)
== END 2024-10-13 18:50 | disposition home or self-care (01) ==
PROVIDERS: Nurse Practitioner; Emergency Provider Student in an Organized Health Care Education/Training Program
DX: J44.1 Chronic obstructive pulmonary disease with (acute) exacerbation (principal); F17.210 Nicotine dependence, cigarettes, uncomplicated; R22.43 Localized swelling, mass and lump, lower limb, bilateral; I10 Essential (primary) hypertension; E78.5 Hyperlipidemia, unspecified
CPT/HCPCS: 71275; 80053; 82803; 83690; 83735; 83880; 84484; 85025; 86803; 87040; 87389; 87522; 87636; 93005; 96365; 96375; 99285; J2919; J3475; Q9967